=== PATIENT | male | born 1970 | race Caucasian/White ===

== ENCOUNTER → 2019-10-15 00:01 | Outpatient (RCR) | payer OTHER, SELFPAY | LOC: ONCMED 09-17 06:13 | PROVIDERS: Family Provider Family Medicine; Visit Provider Internal Medicine Hematology & Oncology | DX: Z51.11 Encounter for antineoplastic chemotherapy (principal); C20 Malignant neoplasm of rectum; C77.2 Secondary and unspecified malignant neoplasm of intra-abdominal lymph nodes; D70.1 Agranulocytosis secondary to cancer chemotherapy; T45.1X5A Adverse effect of antineoplastic and immunosuppressive drugs, initial encounter; D50.9 Iron deficiency anemia, unspecified; K57.30 Diverticulosis of large intestine without perforation or abscess without bleeding; Z79.899 Other long term (current) drug therapy ==

== ENCOUNTER 2019-11-15 05:45 | Outpatient (RCR) | payer OTHER, SELFPAY ==
[2019-10-29 09:26] LABS: Basophils # 0.1 10^3/uL (0.0-0.1); Basophils % 1.7 %; Eosinophils # 0.7 10^3/uL (0.0-0.8); Eosinophils % 11.9 %; Hematocrit 40.3 % (42.0-52.0); Hemoglobin 13.2 g/dL (11.7-16.6); Lymphocytes % 17.5 %; Mean Corpuscular HGB Conc 32.8 g/dL (30.0-36.0); Mean Corpuscular Hemoglobin 32.3 pg (28.0-34.0); Mean Corpuscular Volume 98.5 fL (80-94); Mean Platelet Volume 10.9 fL (7.4-10.4); Monocytes # 0.9 10^3/uL (0.2-0.9); Neutrophils # 3.1 10^3/uL (1.8-7.7); Neutrophils % 52.5 %; Nucleated Red Blood Cells % 0 %; Platelet Count 133 10^3/cmm (130-400); Red Blood Count 4.09 10^6/uL (4.1-5.3); Red Cell Distribution Width 17.9 % (12.1-15.1); White Blood Count 5.9 10^3/uL (4.0-10.0)
[2019-10-29 09:38] LABS: Alanine Aminotransferase 54 U/L (0-41); Albumin Level 4.4 g/dL (3.5-5.2); Alkaline Phosphatase 248 IU/L (40-130); Anion Gap 16.5 (5-19); Aspartate Amino Transferase 60 U/L (0-40); Blood Urea Nitrogen 4 mg/dL (6-20); Carbon Dioxide 25 mmol/L (22-29); Chloride 100 mmol/L (98-107); Globulin 2.6 g/dL (1.3-4.6); Glomerular Filtration Rate 119.4 mL/min (90-130); Glucose 115 mg/dL (74-109); Potassium 3.5 mmol/L (3.5-5.1); Sodium 138 mmol/L (136-145); Total Bilirubin 0.6 mg/dL (0.15-1.2)
[2019-10-30] MEDS: dextrose 5 % 500 ML 75 ML (10:45)
--- NOTE | 2019-10-31 08:28 | ONC FU_ITS ---
Dr. Frias follow up note Patient: Guy Salinas Unit #: [id number]: 1970 Dicatated By: Jamie Frias M.D.Date of Visit:Oct 30, 2019 Onc Med Follow-up/Prog Note History of Present Illness: Mr. Guy Salinas, Is a 49 -year-old gentleman with off and on bleeding per rectum for the last couple of years. Recently went to [facility] with progressive weakness found to have hemoglobin around 6 g patient was given blood transfusion with that he felt better, underwent CT scan of abdomen and pelvis on 12/13/2018 which showed circumferential rectal wall thickening with mild perirectal edema and small perirectal lymph nodes Descending and sigmoid diverticulosis without acute diverticulitis. And also showed 2 mm nodules at the lung bases bilaterally, no liver involvement no pelvic lymphadenopathy. Patient underwent colonoscopy on 12/14/2018 which showed at 8 cm, there is circumferential mass, biopsy was obtained final pathology report showed infiltrating adenocarcinoma, low-grade, moderately differentiated. CEA was 2.1 Patient is on oral iron supplement, tolerating well, overall feeling well, still has rectal bleeding but off-and-on. As per patient Dr. Miller refered him to colorectal surgeon in [place], [place] for evaluation Mr Salinas was evaluated by Dr. Rodríguez in [place] who recommended neoadjuvant chemotherapy. neoadjuvant combined chemoradiation therapy with oral Xeloda has been started 01/28 After completion combined chemoradiation patient underwent sigmoid colon/rectum resection on 04/30/2019 and final pathology report shows partial response, tumor size 2 x 2.05 cm extends through muscularis propria into perirectal adipose tissue, with a clear margin no lymphovascular invasion seen 4 out of 11 lymph nodes positive Started on adjuvant chemotherapy with FOLFOX every 2 weeks ???12 on 07/03/2019 Came for follow-up, denies any specific complaints, no fever or chills, no nausea or vomiting, no mouth sores, no diarrhea constipation, no peripheral numbness. Tolerating adjuvant chemotherapy with FOLFOX well. Medications: Allopurinol 1 Tablet (of 300 mg) Oral daily, Lisinopril 1 (40 mg) Tablet Oral daily, LORazepam 1 Tablet (of 0.5 mg) Oral t.i.d. PRN, Omeprazole 1 Tablet (of 20 mg) Tablet, enteric coated Oral daily, Prochlorperazine Maleate 1 Tablet (of 10 mg) Oral q 4 hours PRN, Ritalin 1 Tablet (of 10 mg) Oral b.i.d., Tamsulosin HCl 1 Capsule (of 0.4 mg) Oral at bedtime PRN Allergies: Cefprozil and Naproxen. Review of Systems: Constitutional - Appetite is good and weight is stable. No fever, chills, hot flashes, or night sweats. Energy level is fair, ENMT - No sinus congestion/drainage. No mouth sores. No sore throat or difficulty swallowing, Hematologic/Lymphatic - No abnormal bruising or bleeding, Respiratory - No shortness of breath. No cough. No pleuritic pain or hemoptysis, Cardiovascular - No angina pain. No palpitations, Gastrointestinal - No nausea or vomiting. No heartburn or acid reflux. No diarrhea or constipation. No blood in the stool or black stools, Genitourinary (M) - Occaional dysuria, no hematuria. No urinary frequency. No urgency or incontinence, Musculoskeletal - No joint or bone pain, Neurologic - No headache or dizziness. No numbness/paresthesias or other focal neurologic symptoms, Psychiatric - No anxiety or depression. No insomnia. Vital Signs: Performed on Oct 30, 2019 15:15 Height - 67.00 in Temperature - 98 F (LOW) Pulse - 92 /min Respiration - 18 /min BP - 118/77 mm(hg) O2 Sat - 98 % Pain - 0 Fatigue - 0 Performed on Oct 30, 2019 09:28 Height - 67.00 in Weight - 218.2 lbs (LOW) BSA - 2.10 sq.m BMI - 34.18 (HIGH) Temperature - 97.8 F (LOW) Pulse - 88 /min Respiration - 20 /min BP - 126/82 mm(hg) O2 Sat - 98 % Pain - 0 Performance Status: 0 - Fully active, able to carry on all predisease activities without restrictions. (ECOG) Physical Examination: ENMT - No oral exudates, ulcers, masses, thrush or mucositis. Oropharynx clear. Tongue normal, Respiratory - Lungs are clear to auscultation without rhonchi or wheezing, Cardiovascular - Regular rate and rhythm of heart, Abdomen - Non-tender, non-distended, ileostomy bag functioning fine Good bowel sounds. No guarding or rebound tenderness. No pulsatile masses, Extremities - no edema. Lab/Imaging: Test performed on Oct 29, 2019 08:55 Glucose 115 mg/dL BUN 4 mg/dL Creatinine 0.7 mg/dL Cr Clearance (Est) 171.88 mL/min Sodium 138 mmol/L Potassium 3.5 mmol/L Chloride 100 mmol/L CO2 25 mmol/L Calcium 10.0 mg/dL Protein, Total 7.0 g/dL Albumin 4.4 g/dL Globulin 2.6 g/dL Bilirubin, Total 0.6 mg/dL Alkaline Phosphatase 248 IU/L AST (SGOT) 60 IU/L ALT (SGPT) 54 IU/L WBC 5.9 10^9/L RBC 4.09 10^12/L HGB 13.2 g/dL HCT 40.3 % MCV 98.5 fl MCH 32.3 pg MCHC 32.8 g/dL RDW 17.9 % Platelet Count 133 10^9/L MPV 10.9 fL Neutrophils (Gran) 3.1 10^9/L Lymphocytes 1.0 10^9/L Monocytes 0.9 10^9/L Eosinophils 0.7 10^9/L Basophils 0.1 10^9/L Manual Segs 52.5 % Manual Lymphocytes 17.5 % Manual Monocytes 15.0 % Manual Eosinophils 11.9 % Manual Basophils 1.7 % NRBCs 0.0 /100 WBC Test performed on Oct 14, 2019 14:25 Anion Gap 13.4 eGFR 142.6 mL/min Neutrophil % 60.2 % Lymphocyte % 15.3 % Monocyte % 16.1 % Eosinophil % 6.2 % Basophils % 1.6 % Test performed on Sep 17, 2019 13:13 Magnesium 1.9 mg/dL Impression: Infiltrating adenocarcinoma, low-grade, moderate differentiated per biopsy/colonoscopy done on 12/14/[address] scan of chest abdomen pelvis done on 12/13/2018 showed circumferential rectal wall thickening with mild perirectal edema and small perirectal lymph nodes, correlate for acute proctitis Descending and sigmoid diverticulosis without acute diverticulitis No intrahepatic lesion, no pelvic lymphadenopathy 2 mm nodules at the lung bases bilaterally. Iron deficiency anemia status post packed RBCs, now on oral iron now complaining of intolerance , Oral iron discontinued status post Injectafer 750 mg on February 01 and 2018 Esophageal stricture status post dilatation many years ago. s/p dalataion with that his dysphagia resolved and able to take Xeloda by mouth now on Xeloda twice a day 5 days a week concurrent with radiation therapy, started on 01/28/19 And after completion combined chemoradiation patient underwent sigmoid colon/rectum resection on 04/30/2019 which showed partial response tumor size was 2 x 2.5 cm extends through muscularis propria into perirectal adipose tissue with clear margins, no lymphovascular invasion seen, 4 out of 11 lymph nodes were positive for metastatic disease, patient was started on adjuvant chemotherapy with FOLFOX ???12 on 07/03/2019 Plan: Discussed with patient regarding his labs white blood count 5.9 hemoglobin 13.2 crit 40.3 platelets 133,000 CMP within normal limits Clinically, patient is doing well, tolerating adjuvant therapy with FOLFOX well but with expected side effects. We'll proceed with next cycle #8/12 with FOLFOX today and then return to clinic in 2 weeks with CBC CMP. Signed By: Jamie Frias M.D. <<Signature on File>>
[2019-11-12 14:09] LABS: Basophils # 0.1 10^3/uL (0.0-0.1); Basophils % 1.2 %; Eosinophils # 0.6 10^3/uL (0.0-0.8); Eosinophils % 9.3 %; Hematocrit 39.3 % (42.0-52.0); Hemoglobin 12.8 g/dL (11.7-16.6); Lymphocytes # 0.8 10^3/uL (0.8-4.8); Lymphocytes % 13.4 %; Mean Corpuscular HGB Conc 32.6 g/dL (30.0-36.0); Mean Corpuscular Hemoglobin 33.7 pg (28.0-34.0); Mean Corpuscular Volume 103.4 fL (80-94); Mean Platelet Volume 10.1 fL (7.4-10.4); Monocytes # 1.1 10^3/uL (0.2-0.9); Monocytes % 18.4 %; Neutrophils # 3.4 10^3/uL (1.8-7.7); Neutrophils % 56.5 %; Nucleated Red Blood Cells % 0 %; Platelet Count 128 10^3/cmm (130-400); Red Cell Distribution Width 18.2 % (12.1-15.1)
[2019-11-12 14:23] LABS: Alanine Aminotransferase 45 U/L (0-41); Albumin Level 3.4 g/dL (3.5-5.2); Alkaline Phosphatase 275 IU/L (40-130); Aspartate Amino Transferase 43 U/L (0-40); Blood Urea Nitrogen 5 mg/dL (6-20); Calcium 9.6 mg/dL (8.5-10.5); Carbon Dioxide 22 mmol/L (22-29); Chloride 103 mmol/L (98-107); Glomerular Filtration Rate 142.6 mL/min (90-130); Glucose 97 mg/dL (74-109); Sodium 139 mmol/L (136-145); Total Bilirubin 0.7 mg/dL (0.15-1.2); Total Protein 7.4 g/dL (6.6-8.7)
[2019-11-12 15:22] LABS: Slide Review Slide Review Perform
[2019-11-13] MEDS: dextrose 5% 250 ML 75 ML IV (09:55)
--- NOTE | 2019-11-13 10:03 | ONC FU_ITS ---
Dr. Frias follow up note Patient: Guy Salinas Unit #: [id number]: 1970 Dicatated By: Jamie Frias M.D.Date of Visit:Nov 13, 2019 Onc Med Follow-up/Prog Note History of Present Illness: Mr. Guy Salinas, Is a 49 -year-old gentleman with off and on bleeding per rectum for the last couple of years. Recently went to [facility] with progressive weakness found to have hemoglobin around 6 g patient was given blood transfusion with that he felt better, underwent CT scan of abdomen and pelvis on 12/13/2018 which showed circumferential rectal wall thickening with mild perirectal edema and small perirectal lymph nodes Descending and sigmoid diverticulosis without acute diverticulitis. And also showed 2 mm nodules at the lung bases bilaterally, no liver involvement no pelvic lymphadenopathy. Patient underwent colonoscopy on 12/14/2018 which showed at 8 cm, there is circumferential mass, biopsy was obtained final pathology report showed infiltrating adenocarcinoma, low-grade, moderately differentiated. CEA was 2.1 Patient is on oral iron supplement, tolerating well, overall feeling well, still has rectal bleeding but off-and-on. As per patient Dr. Miller refered him to colorectal surgeon in [place], [place] for evaluation Mr Salinas was evaluated by Dr. Rodríguez in [place] who recommended neoadjuvant chemotherapy. neoadjuvant combined chemoradiation therapy with oral Xeloda has been started 01/28 After completion combined chemoradiation patient underwent sigmoid colon/rectum resection on 04/30/2019 and final pathology report shows partial response, tumor size 2 x 2.05 cm extends through muscularis propria into perirectal adipose tissue, with a clear margin no lymphovascular invasion seen 4 out of 11 lymph nodes positive Started on adjuvant chemotherapy with FOLFOX every 2 weeks ???12 on 07/03/2019 Came for follow-up, denies any specific complaints, no nausea vomiting no fever no chills no diarrhea constipation, no mouth sores, no jaundice, no peripheral neuropathy . Tolerating adjuvant chemotherapy with FOLFOX, well Medications: Allopurinol 1 Tablet (of 300 mg) Oral daily, Lisinopril 1 (40 mg) Tablet Oral daily, LORazepam 1 Tablet (of 0.5 mg) Oral t.i.d. PRN, Omeprazole 1 Tablet (of 20 mg) Tablet, enteric coated Oral daily, Prochlorperazine Maleate 1 Tablet (of 10 mg) Oral q 4 hours PRN, Ritalin 1 Tablet (of 10 mg) Oral b.i.d., Tamsulosin HCl 1 Capsule (of 0.4 mg) Oral at bedtime PRN Allergies: Cefprozil and Naproxen. Review of Systems: Constitutional - Appetite is good and weight is stable. No fever, chills, hot flashes, or night sweats. Energy level is fair, ENMT - No sinus congestion/drainage. No mouth sores. No sore throat or difficulty swallowing, Hematologic/Lymphatic - No abnormal bruising or bleeding, Respiratory - No shortness of breath. No cough. No pleuritic pain or hemoptysis, Cardiovascular - No angina pain. No palpitations, Gastrointestinal - No nausea or vomiting. No heartburn or acid reflux. No diarrhea or constipation. No blood in the stool or black stools, Genitourinary (M) - Occaional dysuria, no hematuria. No urinary frequency. No urgency or incontinence, Musculoskeletal - No joint or bone pain, Neurologic - No headache or dizziness. No numbness/paresthesias or other focal neurologic symptoms, Psychiatric - No anxiety or depression. No insomnia. Vital Signs: Performed on Nov 13, 2019 08:40 Height - 67.00 in Weight - 215.8 lbs (LOW) BSA - 2.09 sq.m BMI - 33.80 (HIGH) Temperature - 97.9 F (LOW) Pulse - 88 /min Respiration - 24 /min BP - 120/76 mm(hg) O2 Sat - 96 % Pain - 0 Performance Status: 0 - Fully active, able to carry on all predisease activities without restrictions. (ECOG) Physical Examination: ENMT - No oral exudates, ulcers, masses, thrush or mucositis. Oropharynx clear. Tongue normal, Respiratory - Lungs are clear to auscultation without rhonchi or wheezing, Cardiovascular - Regular rate and rhythm of heart, Abdomen - Non-tender, non-distended, Good bowel sounds. No guarding or rebound tenderness. No pulsatile masses, Extremities - no edema or rash. Lab/Imaging: Test performed on Oct 29, 2019 08:55 Glucose 115 mg/dL BUN 4 mg/dL Creatinine 0.7 mg/dL Cr Clearance (Est) 171.88 mL/min Sodium 138 mmol/L Potassium 3.5 mmol/L Chloride 100 mmol/L CO2 25 mmol/L Calcium 10.0 mg/dL Protein, Total 7.0 g/dL Albumin 4.4 g/dL Globulin 2.6 g/dL Bilirubin, Total 0.6 mg/dL Alkaline Phosphatase 248 IU/L AST (SGOT) 60 IU/L ALT (SGPT) 54 IU/L WBC 5.9 10^9/L RBC 4.09 10^12/L HGB 13.2 g/dL HCT 40.3 % MCV 98.5 fl MCH 32.3 pg MCHC 32.8 g/dL RDW 17.9 % Platelet Count 133 10^9/L MPV 10.9 fL Neutrophils (Gran) 3.1 10^9/L Lymphocytes 1.0 10^9/L Monocytes 0.9 10^9/L Eosinophils 0.7 10^9/L Basophils 0.1 10^9/L Manual Segs 52.5 % Manual Lymphocytes 17.5 % Manual Monocytes 15.0 % Manual Eosinophils 11.9 % Manual Basophils 1.7 % NRBCs 0.0 /100 WBC Test performed on Oct 14, 2019 14:25 Anion Gap 13.4 eGFR 142.6 mL/min Neutrophil % 60.2 % Lymphocyte % 15.3 % Monocyte % 16.1 % Eosinophil % 6.2 % Basophils % 1.6 % Test performed on Sep 17, 2019 13:13 Magnesium 1.9 mg/dL Impression: Infiltrating adenocarcinoma, low-grade, moderate differentiated per biopsy/colonoscopy done on 12/14/2018 [address]A was [address] scan of chest abdomen pelvis done on 12/13/2018 showed circumferential rectal wall thickening with mild perirectal edema and small perirectal lymph nodes, correlate for acute proctitis Descending and sigmoid diverticulosis without acute diverticulitis No intrahepatic lesion, no pelvic lymphadenopathy 2 mm nodules at the lung bases bilaterally. Iron deficiency anemia status post packed RBCs, now on oral iron now complaining of intolerance , Oral iron discontinued status post Injectafer 750 mg on February 01 and 2018 Esophageal stricture status post dilatation many years ago. s/p dalataion with that his dysphagia resolved and able to take Xeloda by mouth now on Xeloda twice a day 5 days a week concurrent with radiation therapy, started on 01/28/19 And after completion combined chemoradiation patient underwent sigmoid colon/rectum resection on 04/30/2019 which showed partial response tumor size was 2 x 2.5 cm extends through muscularis propria into perirectal adipose tissue with clear margins, no lymphovascular invasion seen, 4 out of 11 lymph nodes were positive for metastatic disease, patient was started on adjuvant chemotherapy with FOLFOX ???12 on 07/03/2019 Plan: Discussed with patient regarding his labs white blood count 6 hemoglobin 12.8 crit 39.3 platelets 126,000 CMP within normal limit except potassium 3 and ALT 45 compared to 54 on 10/29/2019 and AST 43 compared to 60 on 10/29/2019. Clinically, patient is doing well tolerating adjuvant chemotherapy with FOLFOX well. We'll proceed with next cycle #9/12 with FOLFOX today and then he will return to clinic in 2 weeks with CBC CMP As far as mild hypokalemia is concern, we will give him potassium supplement KCl 20 mEq by mouth twice a day for 2 days then as needed and also check his magnesium level if is low , supplement.Mildly elevated transaminases, now improving, continue to monitor Signed By: Jamie Frias M.D. <<Signature on File>>
[2019-11-13 13:09] LABS: Magnesium 1.9 mg/dL (1.7-2.3)
== END 2019-11-15 23:59 | disposition home or self-care (01) ==
LOC: ONCMED 05:45
PROVIDERS: Nurse Practitioner; Family Provider Family Medicine; PCP Family Medicine; Visit Provider Internal Medicine Hematology & Oncology
DX: Z51.11 Encounter for antineoplastic chemotherapy (principal); C20 Malignant neoplasm of rectum; C77.2 Secondary and unspecified malignant neoplasm of intra-abdominal lymph nodes; D70.1 Agranulocytosis secondary to cancer chemotherapy; T45.1X5A Adverse effect of antineoplastic and immunosuppressive drugs, initial encounter; E87.6 Hypokalemia; Z45.2 Encounter for adjustment and management of vascular access device; K57.30 Diverticulosis of large intestine without perforation or abscess without bleeding; Z92.3 Personal history of irradiation; Z90.49 Acquired absence of other specified parts of digestive tract; Z79.899 Other long term (current) drug therapy
CPT/HCPCS: 36591; 80053; 83735; 85025; 96367; 96368; 96372; 96411; 96413; 96415; 96416; 96523; 99214; J0640; J1100; J2469; J2505; J9190; J9263

== ENCOUNTER 2019-12-10 05:34 | Outpatient (RCR) | payer OTHER, SELFPAY ==
[2019-11-26 15:13] LABS: Basophils % 1.4 %; Eosinophils # 0.2 10^3/uL (0.0-0.8); Eosinophils % 7.1 %; Hematocrit 36.8 % (42.0-52.0); Lymphocytes # 0.5 10^3/uL (0.8-4.8); Lymphocytes % 18.9 %; Mean Corpuscular HGB Conc 32.6 g/dL (30.0-36.0); Mean Corpuscular Volume 101.1 fL (80-94); Mean Platelet Volume 10.8 fL (7.4-10.4); Monocytes # 0.8 10^3/uL (0.2-0.9); Monocytes % 26.7 %; Neutrophils # 1.3 10^3/uL (1.8-7.7); Neutrophils % 45.9 %; Nucleated Red Blood Cells % 0 %; Platelet Count 129 10^3/cmm (130-400); Red Blood Count 3.64 10^6/uL (4.1-5.3); Red Cell Distribution Width 17.6 % (12.1-15.1); White Blood Count 2.8 10^3/uL (4.0-10.0)
[2019-11-26 15:27] LABS: Alanine Aminotransferase 35 U/L (0-41); Albumin Level 3.4 g/dL (3.5-5.2); Alkaline Phosphatase 244 IU/L (40-130); Anion Gap 18.5 (5-19); Aspartate Amino Transferase 41 U/L (0-40); Blood Urea Nitrogen 6 mg/dL (6-20); Calcium 9.6 mg/dL (8.5-10.5); Carbon Dioxide 21 mmol/L (22-29); Chloride 107 mmol/L (98-107); Glomerular Filtration Rate 119.4 mL/min (90-130); Glucose 113 mg/dL (65-115); Potassium 3.5 mmol/L (3.5-5.1); Sodium 143 mmol/L (136-145); Total Bilirubin 0.9 mg/dL (0.15-1.2); Total Protein 7.4 g/dL (6.6-8.7)
--- NOTE | 2019-11-27 17:06 | ONC FU_ITS ---
Dr. Frias follow up note Patient: Guy Salinas Unit #: [id number]: 1970 Dicatated By: Jamie Frias M.D.Date of Visit:Nov 27, 2019 Onc Med Follow-up/Prog Note History of Present Illness: Mr. Guy Salinas, Is a 49 -year-old gentleman with off and on bleeding per rectum for the last couple of years. Recently went to [facility] [place] [facility] with progressive weakness found to have hemoglobin around 6 g patient was given blood transfusion with that he felt better, underwent CT scan of abdomen and pelvis on 12/13/2018 which showed circumferential rectal wall thickening with mild perirectal edema and small perirectal lymph nodes Descending and sigmoid diverticulosis without acute diverticulitis. And also showed 2 mm nodules at the lung bases bilaterally, no liver involvement no pelvic lymphadenopathy. Patient underwent colonoscopy on 12/14/2018 which showed at 8 cm, there is circumferential mass, biopsy was obtained final pathology report showed infiltrating adenocarcinoma, low-grade, moderately differentiated. CEA was 2.1 Patient is on oral iron supplement, tolerating well, overall feeling well, still has rectal bleeding but off-and-on. As per patient Dr. Miller refered him to colorectal surgeon in [place], [place] for evaluation Mr Salinas was evaluated by Dr. Rodríguez in [place] who recommended neoadjuvant chemotherapy. neoadjuvant combined chemoradiation therapy with oral Xeloda has been started 01/28 After completion combined chemoradiation patient underwent sigmoid colon/rectum resection on 04/30/2019 and final pathology report shows partial response, tumor size 2 x 2.05 cm extends through muscularis propria into perirectal adipose tissue, with a clear margin no lymphovascular invasion seen 4 out of 11 lymph nodes positive Started on adjuvant chemotherapy with FOLFOX every 2 weeks ???12 on 07/03/2019 Came for follow-up, denies any specific complaints, no fever or chills, no nausea or vomiting, no mouth sores, no diarrhea constipation, colostomy bag is functioning fine, patient was on potassium supplement but because of financial reason could not get his prescription filled till yesterday. Otherwise tolerating adjuvant chemotherapy with FOLFOX well Medications: Allopurinol 1 Tablet (of 300 mg) Oral daily, Lisinopril 1 (40 mg) Tablet Oral daily, LORazepam 1 Tablet (of 0.5 mg) Oral t.i.d. PRN, Omeprazole 1 Tablet (of 20 mg) Tablet, enteric coated Oral daily, Prochlorperazine Maleate 1 Tablet (of 10 mg) Oral q 4 hours PRN, Ritalin 1 Tablet (of 10 mg) Oral b.i.d., Tamsulosin HCl 1 Capsule (of 0.4 mg) Oral at bedtime PRN Allergies: Cefprozil and Naproxen. Review of Systems: Review of Systems is not available for this patient. Vital Signs: Performed on Nov 27, 2019 08:33 Height - 67.00 in Weight - 216.8 lbs (HIGH) BSA - 2.09 sq.m BMI - 33.96 (HIGH) Temperature - 98.8 F Pulse - 88 /min Respiration - 18 /min BP - 128/75 mm(hg) O2 Sat - 97 % Pain - 0 Performance Status: 0 - Fully active, able to carry on all predisease activities without restrictions. (ECOG) Physical Examination: ENMT - No oral exudates, ulcers, masses, thrush or mucositis. Oropharynx clear. Tongue normal, Respiratory - Lungs are clear to auscultation without rhonchi or wheezing, Cardiovascular - Regular rate and rhythm of heart, Abdomen - Non-tender, non-distended, Good bowel sounds. No guarding or rebound tenderness. colostomy bag functioning fine, Extremities - no edema or rash. Lab/Imaging: Test performed on Nov 12, 2019 13:15 Magnesium 1.9 mg/dL Sodium 139 mmol/L Potassium 3.0 mmol/L Chloride 103 mmol/L CO2 22 mmol/L Anion Gap 17.0 BUN 5 mg/dL Creatinine 0.6 mg/dL Cr Clearance (Est) 200.5300 mL/min eGFR 142.6 mL/min Glucose 97 mg/dL Calcium 9.6 mg/dL Protein, Total 7.4 g/dL Albumin 3.4 g/dL Globulin 4.0 g/dL Bilirubin, Total 0.7 mg/dL ALT (SGPT) 45 U/L AST (SGOT) 43 U/L Alkaline Phosphatase 275 IU/L WBC 6.0 10 3/uL RBC 3.80 10 6/uL HGB 12.8 g/dL HCT 39.3 % MCV 103.4 fL MCH 33.7 pg MCHC 32.6 g/dL RDW 18.2 % Platelet Count 128 10 3/cmm MPV 10.1 fL Neutrophils 3.4 10 3/uL Lymphocytes 0.8 10 3/uL Monocytes 1.1 10 3/uL Eosinophils 0.6 10 3/uL Basophils 0.1 10 3/uL Neutrophil % 56.5 % Lymphocyte % 13.4 % Monocyte % 18.4 % Eosinophil % 9.3 % Basophils % 1.2 % CBC Slide Review Slide Review Perform Test performed on Oct 29, 2019 08:55 Manual Segs 52.5 % Manual Lymphocytes 17.5 % Manual Monocytes 15.0 % Manual Eosinophils 11.9 % Manual Basophils 1.7 % NRBCs 0.0 /100 WBC Impression: Infiltrating adenocarcinoma, low-grade, moderate differentiated per biopsy/colonoscopy done on 12/14/2018 [address] scan of chest abdomen pelvis done on 12/13/2018 showed circumferential rectal wall thickening with mild perirectal edema and small perirectal lymph nodes, correlate for acute proctitis Descending and sigmoid diverticulosis without acute diverticulitis No intrahepatic lesion, no pelvic lymphadenopathy 2 mm nodules at the lung bases bilaterally. Iron deficiency anemia status post packed RBCs, now on oral iron now complaining of intolerance , Oral iron discontinued status post Injectafer 750 mg on February 01 and 2018 Esophageal stricture status post dilatation many years ago. s/p dalataion with that his dysphagia resolved and able to take Xeloda by mouth now on Xeloda twice a day 5 days a week concurrent with radiation therapy, started on 01/28/19 And after completion combined chemoradiation patient underwent sigmoid colon/rectum resection on 04/30/2019 which showed partial response tumor size was 2 x 2.5 cm extends through muscularis propria into perirectal adipose tissue with clear margins, no lymphovascular invasion seen, 4 out of 11 lymph nodes were positive for metastatic disease, patient was started on adjuvant chemotherapy with FOLFOX ???12 on 07/03/2019 Plan: Discussed with patient regarding his labs white blood count 2.8 hemoglobin crit 36.8 platelets 129,000 ANC 1300 CMP within normal limit except potassium 3.5 Clinically, patient is doing well, tolerating adjuvant chemotherapy with modified dose FOLFOX well but with expected side effects e.g. progressive leukopenia/neutropenia now causing delay in chemotherapy. Patient was supposed to get Neulasta with last treatment but somehow did not get it. We will hold his chemotherapy for week and repeat CBC and CMP in 1 week and if leukopenia resolves then will consider next cycle of chemotherapy with Neulasta support to prevent chemotherapy-induced leukopenia/neutropenia and to maintain chemotherapy schedule. Mild hypokalemia, patient is on potassium supplement, will continue to monitor. Signed By: Jamie Frias M.D. <<Signature on File>>
[2019-12-02 15:22] LABS: Basophils % 1.5 %; Eosinophils # 0.2 10^3/uL (0.0-0.8); Eosinophils % 7.6 %; Hematocrit 39.6 % (42.0-52.0); Hemoglobin 12.8 g/dL (11.7-16.6); Lymphocytes # 0.6 10^3/uL (0.8-4.8); Lymphocytes % 22.8 %; Mean Corpuscular HGB Conc 32.3 g/dL (30.0-36.0); Mean Corpuscular Hemoglobin 33.6 pg (28.0-34.0); Mean Corpuscular Volume 103.9 fL (80-94); Mean Platelet Volume 10.3 fL (7.4-10.4); Monocytes # 0.9 10^3/uL (0.2-0.9); Monocytes % 35.7 %; Neutrophils # 0.9 10^3/uL (1.8-7.7); Neutrophils % 32.4 %; Nucleated Red Blood Cells % 0 %; Platelet Count 216 10^3/cmm (130-400); Red Blood Count 3.81 10^6/uL (4.1-5.3); Red Cell Distribution Width 16.9 % (12.1-15.1); White Blood Count 2.6 10^3/uL (4.0-10.0)
[2019-12-02 15:35] LABS: Alanine Aminotransferase 31 U/L (0-41); Albumin Level 3.3 g/dL (3.5-5.2); Alkaline Phosphatase 261 IU/L (40-130); Anion Gap 14.7 (5-19); Aspartate Amino Transferase 38 U/L (0-40); Blood Urea Nitrogen 6 mg/dL (6-20); Calcium 9.8 mg/dL (8.5-10.5); Carbon Dioxide 22 mmol/L (22-29); Chloride 107 mmol/L (98-107); Globulin 4.1 g/dL (1.3-4.6); Glomerular Filtration Rate 119.4 mL/min (90-130); Glucose 121 mg/dL (65-115); Potassium 3.7 mmol/L (3.5-5.1); Sodium 140 mmol/L (136-145); Total Bilirubin 0.6 mg/dL (0.15-1.2); Total Protein 7.4 g/dL (6.6-8.7)
[2019-12-09 11:53] LABS: Basophils # 0.1 10^3/uL (0.0-0.1); Basophils % 1.5 %; Eosinophils # 0.3 10^3/uL (0.0-0.8); Eosinophils % 6.4 %; Hematocrit 39.3 % (42.0-52.0); Hemoglobin 12.7 g/dL (11.7-16.6); Lymphocytes # 0.6 10^3/uL (0.8-4.8); Lymphocytes % 14.1 %; Mean Corpuscular HGB Conc 32.3 g/dL (30.0-36.0); Mean Corpuscular Hemoglobin 33.7 pg (28.0-34.0); Mean Corpuscular Volume 104.2 fL (80-94); Mean Platelet Volume 10.1 fL (7.4-10.4); Monocytes # 0.7 10^3/uL (0.2-0.9); Monocytes % 15.9 %; Neutrophils # 2.8 10^3/uL (1.8-7.7); Neutrophils % 61.7 %; Nucleated Red Blood Cells % 0 %; Platelet Count 152 10^3/cmm (130-400); Red Blood Count 3.77 10^6/uL (4.1-5.3); Red Cell Distribution Width 16.6 % (12.1-15.1); White Blood Count 4.5 10^3/uL (4.0-10.0)
[2019-12-09 12:10] LABS: Alanine Aminotransferase 25 U/L (0-41); Albumin Level 3.2 g/dL (3.5-5.2); Alkaline Phosphatase 264 IU/L (40-130); Anion Gap 14.3 (5-19); Aspartate Amino Transferase 32 U/L (0-40); Blood Urea Nitrogen 7 mg/dL (6-20); Calcium 9.8 mg/dL (8.5-10.5); Carbon Dioxide 22 mmol/L (22-29); Chloride 109 mmol/L (98-107); Globulin 4.1 g/dL (1.3-4.6); Glomerular Filtration Rate 119.4 mL/min (90-130); Glucose 153 mg/dL (65-115); Potassium 3.3 mmol/L (3.5-5.1); Sodium 142 mmol/L (136-145); Total Bilirubin 0.5 mg/dL (0.15-1.2); Total Protein 7.3 g/dL (6.6-8.7)
[2019-12-10 11:10] LABS: Magnesium 2.1 mg/dL (1.7-2.3)
--- NOTE | 2019-12-11 20:27 | ONC FU_ITS ---
[facility] Patient Note Patient: Guy Salinas Unit #: [id number]: 1970 Dictated By: Kisha ValladaresDate of Visit: Dec 10, 2019 Onc MED Follow-Up/Prog Note Chief Complaint: Rectal cancer History of Present Illness: Mr. Salinas is a 49 -year-old gentleman with intermittent rectal bleeding for the last couple of years. In November 2019, he [place] [facility] [place] [facility] with progressive weakness found to have hemoglobin around 6 g. He was given blood transfusion and with that he felt better. He then underwent CT scan of abdomen and pelvis on 12/13/2018 which showed circumferential rectal wall thickening with mild perirectal edema and small perirectal lymph nodes; Descending and sigmoid diverticulosis without acute diverticulitis. And also showed 2 mm nodules at the lung bases bilaterally, no liver involvement no pelvic lymphadenopathy. Mr Salinas underwent colonoscopy on 12/14/2018 which showed at 8 cm a circumferential mass. A biopsy was obtained and the final pathology report showed infiltrating adenocarcinoma, low-grade, moderately differentiated. CEA was 2.1 Mr Salinas is on oral iron supplement, tolerating well, overall feeling well, still has rectal bleeding but off-and-on. As per patient, Dr. Miller referred him to colorectal surgeon in [place], [place] for evaluation. Mr Salinas was evaluated by Dr. Rodríguez in [place] who recommended neoadjuvant chemotherapy. Neoadjuvant combined chemoradiation therapy with oral Xeloda started on 01/28 After completion combined chemoradiation, Mr Salinas underwent sigmoid colon/rectum resection on 04/30/2019 and final pathology report shows partial response, tumor size 2 x 2.05 cm extends through muscularis propria into perirectal adipose tissue, with a clear margin no lymphovascular invasion seen 4 out of 11 lymph nodes positive. Mr Salinas started on adjuvant chemotherapy with FOLFOX every 2 weeks ???12 on 07/03/2019. Mr. Salinas has now completed 9 cycles of FOLFOX. He has required growth factor support due to chemo induced neutropenia. With cycle 9 he did not receive the Neulasta for unknown reasons and his ANC nadired at 900. His last chemotherapy treatment was November 13, 2019. Mr. Salinas is here today for follow-up and consideration of chemotherapy. Due to significant neutropenia and significant [id number] expense for the fluorouracil pump, Dr. Frias has offered to change the fluorouracil portion to keep capecitabine at 1650 mg twice daily 14 days on and 7 days off. Mr. Salinas came today to start the XELOX regimen. He states his co-pay for the capecitabine was 7 or $8. He denies any new concerns today. He denies any new pain. He has had no shortness of breath orthopnea. He denies chest pain or palpitations. He denies any fever or chills. He denies mouth sores, sore throat or any skin changes. He denies any diarrhea or constipation. He states his activity is fair is still limited due to fatigue. And his appetite is fair . His weight is stable. He denies any new concerns today. He has been on the Xeloda before for neoadjuvant therapy and has no questions regarding its use. We did clarify dosing and the plan to continue for 14 days straight and then take 7 days off. With his radiation he was only on the Xeloda on the days of radiation. His ECOG is 1. Past Medical History: Anemia Gastroesophageal reflux disease Gout Hypertension Past Surgical History: Cataract excision Colonoscopy in 2019 Allergies: Cefprozil and Naproxen. Medications: Allopurinol 1 Tablet (of 300 mg) Oral daily Lisinopril 1 (40 mg) Tablet Oral daily LORazepam 1 Tablet (of 0.5 mg) Oral t.i.d. PRN Omeprazole 1 Tablet (of 20 mg) Tablet, enteric coated Oral daily Prochlorperazine Maleate 1 Tablet (of 10 mg) Oral q 4 hours PRN Ritalin 1 Tablet (of 10 mg) Oral b.i.d. Tamsulosin HCl 1 Capsule (of 0.4 mg) Oral at bedtime PRN Family History: Mr. Salinas's mother is alive. Mr. Salinas's father at age 73: renal cancer. Mr. Salinas has 1 brother who is alive: colon cancer. He has 1 maternal aunt who is : lung cancer. 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 Mr. Salinas no longer smokes but had smoked 0.5 packs/day for 32 years. He drinks daily. He consumes 6 drinks/day 7 days/week. He has indicated exposure to the following products: chewing tobacco. Chews tobacco and goes through 1 can every 2 days. Has chewed for about 20 plus years chews 2 cans of tobacco weekly, drinks 6-87 beers daily. Review Of Symptoms: Constitutional Denies fevers, chills, night sweats, excessive fatigue or weight loss. Allergic/Immunologic No reactions. Eyes Denies significant visual changes. No diplopia. No amaurosis. ENMT Denies changes in hearing, sore throat, mouth sores, difficulty or changes in swallowing ability, and/or sinus drainage. Endocrine No diabetes, thyroid disease or hormone replacement. Denies hot flashes or night sweats. Hematologic/Lymphatic Denies easy bruising or bleeding. The patient denies any tender or palpable lymph nodes. Respiratory Denies dyspnea on exertion, chest pain, cough or hemoptysis. Denies orthopnea. Cardiovascular Denies anginal chest pain, palpitations or orthopnea. Gastrointestinal Denies nausea, vomiting, diarrhea, GI bleeding, or constipation. Denies change in bowel habits and/or stool color, no heartburn or early satiety. No concerns with ostomy. Genitourinary (M) Denies hematuria, dysuria, increased frequency, urgency, hesitancy or incontinence. Musculoskeletal Denies joint pain, swelling or redness. No decreased range of motion. Integumentary Denies chronic rashes, inflammation, ulcerations or skin changes. Neurologic Denies headache, blurred vision, and no areas of focal weakness or numbness. Normal gait. No sensory problems. Psychiatric Denies depression, bina or mood swings. He is having some problems sleeping. Vital Signs: Performed on Dec 10, 2019 09:53 Height - 67.00 in Weight - 218.6 lbs (HIGH) BSA - 2.10 sq.m BMI - 34.24 (HIGH) Temperature - 98.8 F Pulse - 89 /min Respiration - 18 /min BP - 138/74 mm(hg) O2 Sat - 97 % Pain - 0,1 - No physically strenuous activity, but ambulatory and able to carry out light or sedentary work (e.g. office work, light house work). (ECOG) Physical Examination: Constitutional Alert, oriented, no acute distress. Skin pink, warm and dry. Head Normocephalic; atraumatic. Eyes Conjunctivae and sclerae are clear and without icterus. Pupils are reactive and equal. ENMT No oral exudates, ulcers, masses, thrush or mucositis. Oropharynx clear. Tongue normal. Neck Supple without masses or thyromegaly. No jugular venous distension. Respiratory Lungs are clear to auscultation without rhonchi or wheezing. Cardiovascular Regular rate and rhythm of heart without murmurs,clicks, gallops or rubs. Extremities No visible deformities, no cyanosis, clubbing or edema. Pulses 4+ and equal bilaterally. Musculoskeletal No tenderness or swelling, normal range of motion without obvious weakness. Integumentary No rashes or lesions. Neurologic No sensory or motor deficits, normal cerebellar function, normal gait. Psychiatric Alert and oriented times three. Coherent speech. Verbalizes understanding of our discussions today. Laboratory:Test performed on Dec 09, 2019 11:35 Magnesium 2.1 mg/dL Test performed on Dec 02, 2019 14:45 Sodium 140 mmol/L Potassium 3.7 mmol/L Chloride 107 mmol/L CO2 22 mmol/L Anion Gap 14.7 BUN 6 mg/dL Creatinine 0.7 mg/dL Cr Clearance (Est) 171.8800 mL/min eGFR 119.4 mL/min Glucose 121 mg/dL Calcium 9.8 mg/dL Protein, Total 7.4 g/dL Albumin 3.3 g/dL Globulin 4.1 g/dL Bilirubin, Total 0.6 mg/dL ALT (SGPT) 31 U/L AST (SGOT) 38 U/L Alkaline Phosphatase 261 IU/L WBC 2.6 10 3/uL RBC 3.81 10 6/uL HGB 12.8 g/dL HCT 39.6 % MCV 103.9 fL MCH 33.6 pg MCHC 32.3 g/dL RDW 16.9 % Platelet Count 216 10 3/cmm MPV 10.3 fL Neutrophils 0.9 10 3/uL Lymphocytes 0.6 10 3/uL Monocytes 0.9 10 3/uL Eosinophils 0.2 10 3/uL Basophils 0.0 10 3/uL Neutrophil % 32.4 % Lymphocyte % 22.8 % Monocyte % 35.7 % Eosinophil % 7.6 % Basophils % 1.5 % Test performed on Nov 12, 2019 13:15 CBC Slide Review Slide Review Perform Test performed on Oct 29, 2019 08:55 Manual Segs 52.5 % Manual Lymphocytes 17.5 % Manual Monocytes 15.0 % Manual Eosinophils 11.9 % Manual Basophils 1.7 % NRBCs 0.0 /100 WBC Impression: Infiltrating adenocarcinoma, low-grade, moderate differentiated per biopsy/colonoscopy done on 12/14/[address] scan of chest abdomen pelvis done on 12/13/2018 showed circumferential rectal wall thickening with mild perirectal edema and small perirectal lymph nodes, correlate for acute proctitis Descending and sigmoid diverticulosis without acute diverticulitis No intrahepatic lesion, no pelvic lymphadenopathy 2 mm nodules at the lung bases bilaterally. Iron deficiency anemia status post packed RBCs, now on oral iron now complaining of intolerance , Oral iron discontinued status post Injectafer 750 mg on February 01 and 2018 Esophageal stricture status post dilatation many years ago. s/p dalataion with that his dysphagia resolved and he was able to take Xeloda twice a day 5 days a week concurrent with radiation therapy, started on 01/28/19 After completion combined chemoradiation, Mr Salinas underwent sigmoid colon/rectum resection on 04/30/2019. Followup imaging showed partial response with the tumor size measuring 2 x 2.5 cm and it extends through muscularis propria into perirectal adipose tissue with clear margins, no lymphovascular invasion seen, 4 out of 11 lymph nodes were positive for metastatic disease Mr Salinas was offered adjuvant chemotherapy with FOLFOX ???12 on 07/03/2019. Mr. Salinas has now completed 9 cycles of FOLFOX. He has required growth factor support due to chemo induced neutropenia. With cycle 9 he did not receive the Neulasta for unknown reasons and his ANC nadired at 900. His last chemotherapy treatment was November 13, 2019. Mr. Salinas is here today for follow-up and consideration of chemotherapy. Due to significant neutropenia and significant [id number] expense for the fluorouracil pump, Dr. Frias has offered to change the fluorouracil portion to keep capecitabine at 1650 mg twice daily 14 days on and 7 days off. Mr. Salinas is here today to start the XELOX regimen. Plan: 1. Proceed with oxaliplatin (3 week dosing) and changing 5 FU pump to Xeloda 1650 mg BID x 14 days off 7. Change was requested due to out of pocket expense of fluorouracil verses capecitabine. 2. magnesium added to blood in lab for evaluation of potassium of 3.3. It is normal at 2.1. 3. Cipro 500 mg BID sent to [facility] for patient to have on hand in the event of s/s of infection or if his ANC drops again. 4. Continue weekly labs for monitoring of chemo induced neutropenia. No Neulasta given this cycle. 5. Labs from 12/09/2019 were reveiwed in detail and discussed with Mr Salinas. WBC 4.5, Hgb 12.7, 152,000 and ANC 2800. Potassium 3.3, alk phos 264, creatinine 0.7. 6. Plan to return for followup in 3 weeks with CBC, CMP and cycle 11 of 5FU/oxaliplatin. (will be second cycle of capecitabine/oxaliplatin). 7. 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 The cold induced neuropathy has been resolving well between treatment thus far. 8. AVOID GRAPEFRUIT PRODUCTS WITH XELODA (capecitabine). Signed By: Kisha Valladares-, AOP Jamie Frias MD <<Signature on File>>
== END 2019-12-14 23:59 | disposition home or self-care (01) ==
LOC: ONCMED 05:34
PROVIDERS: Absent Provider Internal Medicine Hematology & Oncology; Family Provider Family Medicine; PCP Family Medicine; Visit Provider Nurse Practitioner
DX: Z51.11 Encounter for antineoplastic chemotherapy (principal); C20 Malignant neoplasm of rectum; C77.5 Secondary and unspecified malignant neoplasm of intrapelvic lymph nodes; D70.1 Agranulocytosis secondary to cancer chemotherapy; T45.1X5A Adverse effect of antineoplastic and immunosuppressive drugs, initial encounter; E87.6 Hypokalemia; D50.9 Iron deficiency anemia, unspecified; K57.30 Diverticulosis of large intestine without perforation or abscess without bleeding; K21.9 Gastro-esophageal reflux disease without esophagitis; M10.9 Gout, unspecified; I10 Essential (primary) hypertension; F10.20 Alcohol dependence, uncomplicated; F17.220 Nicotine dependence, chewing tobacco, uncomplicated; R91.8 Other nonspecific abnormal finding of lung field; Z79.899 Other long term (current) drug therapy; Z98.890 Other specified postprocedural states; Z92.23 Personal history of estrogen therapy
CPT/HCPCS: 36591; 80053; 83735; 85025; 96367; 96413; 96415; 99214; J1100; J2469; J9263

== ENCOUNTER 2020-01-14 06:37 | Outpatient (RCR) | payer OTHER, SELFPAY ==
[2019-12-16 11:57] LABS: Basophils % 0.6 %; Eosinophils # 0.4 10^3/uL (0.0-0.8); Eosinophils % 6.9 %; Hematocrit 39.5 % (42.0-52.0); Hemoglobin 12.7 g/dL (11.7-16.6); Lymphocytes # 0.7 10^3/uL (0.8-4.8); Mean Corpuscular HGB Conc 32.2 g/dL (30.0-36.0); Mean Corpuscular Hemoglobin 32.6 pg (28.0-34.0); Mean Corpuscular Volume 101.3 fL (80-94); Mean Platelet Volume 11.3 fL (7.4-10.4); Monocytes # 0.7 10^3/uL (0.2-0.9); Monocytes % 11.2 %; Neutrophils # 4.4 10^3/uL (1.8-7.7); Neutrophils % 70.1 %; Nucleated Red Blood Cells % 0 %; Platelet Count 119 10^3/cmm (130-400); Red Cell Distribution Width 15.9 % (12.1-15.1); White Blood Count 6.3 10^3/uL (4.0-10.0)
[2019-12-16 12:12] LABS: Alanine Aminotransferase 42 U/L (0-41); Albumin Level 3.6 g/dL (3.5-5.2); Alkaline Phosphatase 243 IU/L (40-130); Anion Gap 14.3 (5-19); Aspartate Amino Transferase 48 U/L (0-40); Blood Urea Nitrogen 8 mg/dL (6-20); Calcium 9.6 mg/dL (8.5-10.5); Carbon Dioxide 23 mmol/L (22-29); Chloride 107 mmol/L (98-107); Globulin 3.8 g/dL (1.3-4.6); Glucose 144 mg/dL (65-115); Potassium 3.3 mmol/L (3.5-5.1); Sodium 141 mmol/L (136-145); Total Protein 7.4 g/dL (6.6-8.7)
[2019-12-23 11:54] LABS: Basophils % 0.7 %; Eosinophils # 0.5 10^3/uL (0.0-0.8); Eosinophils % 11.4 %; Hemoglobin 12.2 g/dL (11.7-16.6); Lymphocytes # 0.7 10^3/uL (0.8-4.8); Lymphocytes % 15.5 %; Mean Corpuscular Hemoglobin 34.2 pg (28.0-34.0); Mean Corpuscular Volume 103.6 fL (80-94); Mean Platelet Volume 10.2 fL (7.4-10.4); Monocytes # 0.8 10^3/uL (0.2-0.9); Monocytes % 17.7 %; Neutrophils # 2.5 10^3/uL (1.8-7.7); Neutrophils % 54.5 %; Nucleated Red Blood Cells % 0 %; Platelet Count 165 10^3/cmm (130-400); Red Blood Count 3.57 10^6/uL (4.1-5.3); Red Cell Distribution Width 16.3 % (12.1-15.1); White Blood Count 4.6 10^3/uL (4.0-10.0)
[2019-12-23 12:14] LABS: Alanine Aminotransferase 42 U/L (0-41); Albumin Level 3.2 g/dL (3.5-5.2); Alkaline Phosphatase 301 IU/L (40-130); Anion Gap 15.1 (5-19); Aspartate Amino Transferase 52 U/L (0-40); Blood Urea Nitrogen 6 mg/dL (6-20); Calcium 9.7 mg/dL (8.5-10.5); Carbon Dioxide 23 mmol/L (22-29); Chloride 104 mmol/L (98-107); Globulin 4.1 g/dL (1.3-4.6); Glomerular Filtration Rate 142.6 mL/min (90-130); Glucose 136 mg/dL (65-115); Osmolality Calculated 286 mOsm/kg (285-295); Potassium 3.1 mmol/L (3.5-5.1); Sodium 139 mmol/L (136-145); Total Bilirubin 0.9 mg/dL (0.15-1.2); Total Protein 7.3 g/dL (6.6-8.7)
[2019-12-30 11:07] LABS: Basophils # 0.1 10^3/uL (0.0-0.1); Basophils % 1.8 %; Eosinophils # 0.4 10^3/uL (0.0-0.8); Eosinophils % 10.8 %; Hematocrit 37.9 % (42.0-52.0); Hemoglobin 12.4 g/dL (11.7-16.6); Lymphocytes # 0.8 10^3/uL (0.8-4.8); Mean Corpuscular HGB Conc 32.7 g/dL (30.0-36.0); Mean Corpuscular Hemoglobin 34.3 pg (28.0-34.0); Mean Corpuscular Volume 104.7 fL (80-94); Mean Platelet Volume 9.9 fL (7.4-10.4); Monocytes # 0.7 10^3/uL (0.2-0.9); Monocytes % 18.2 %; Neutrophils # 1.9 10^3/uL (1.8-7.7); Neutrophils % 48.9 %; Nucleated Red Blood Cells % 0 %; Platelet Count 192 10^3/cmm (130-400); Red Blood Count 3.62 10^6/uL (4.1-5.3); Red Cell Distribution Width 17.5 % (12.1-15.1); White Blood Count 3.9 10^3/uL (4.0-10.0)
[2019-12-30 11:21] LABS: Alanine Aminotransferase 34 U/L (0-41); Albumin Level 3.5 g/dL (3.5-5.2); Alkaline Phosphatase 262 IU/L (40-130); Anion Gap 13.3 (5-19); Aspartate Amino Transferase 46 U/L (0-40); Blood Urea Nitrogen 8 mg/dL (6-20); Calcium 9.4 mg/dL (8.5-10.5); Carbon Dioxide 25 mmol/L (22-29); Chloride 108 mmol/L (98-107); Globulin 3.6 g/dL (1.3-4.6); Glomerular Filtration Rate 142.6 mL/min (90-130); Glucose 134 mg/dL (65-115); Osmolality Calculated 294 mOsm/kg (285-295); Potassium 3.3 mmol/L (3.5-5.1); Sodium 143 mmol/L (136-145); Total Protein 7.1 g/dL (6.6-8.7)
[2019-12-31] MEDS: dextrose 5% 250 ML 999 ML IV (08:58)
--- NOTE | 2020-01-02 14:57 | ONC FU_ITS ---
Dr. Frias follow up note Patient: Guy Salinas Unit #: [id number]: 1970 Dicatated By: Jamie Frias M.D.Date of Visit:Dec 31, 2019 Onc Med Follow-up/Prog Note History of Present Illness: Mr. Salinas is a 49 -year-old gentleman with intermittent rectal bleeding for the last couple of years. In November 2019, he presented to [facility] [place] [facility] with progressive weakness found to have hemoglobin around 6 g. He was given blood transfusion and with that he felt better. He then underwent CT scan of abdomen and pelvis on 12/13/2018 which showed circumferential rectal wall thickening with mild perirectal edema and small perirectal lymph nodes; Descending and sigmoid diverticulosis without acute diverticulitis. And also showed 2 mm nodules at the lung bases bilaterally, no liver involvement no pelvic lymphadenopathy. Mr Salinas underwent colonoscopy on 12/14/2018 which showed at 8 cm a circumferential mass. A biopsy was obtained and the final pathology report showed infiltrating adenocarcinoma, low-grade, moderately differentiated. CEA was 2.1 Mr Salinas is on oral iron supplement, tolerating well, overall feeling well, still has rectal bleeding but off-and-on. As per patient, Dr. Miller referred him to colorectal surgeon in [place], [place] for evaluation. Mr Salinas was evaluated by Dr. Rodríguez in [place] who recommended neoadjuvant chemotherapy. Neoadjuvant combined chemoradiation therapy with oral Xeloda started on 01/28 After completion combined chemoradiation, Mr Salinas underwent sigmoid colon/rectum resection on 04/30/2019 and final pathology report shows partial response, tumor size 2 x 2.05 cm extends through muscularis propria into perirectal adipose tissue, with a clear margin no lymphovascular invasion seen 4 out of 11 lymph nodes positive. Mr Salinas started on adjuvant chemotherapy with FOLFOX every 2 weeks ???12 on 07/03/2019. Mr. Salinas has now completed 9 cycles of FOLFOX. He has required growth factor support due to chemo induced neutropenia. With cycle 9 he did not receive the Neulasta for unknown reasons and his ANC nadired at 900. His last chemotherapy treatment was November 13, 2019. . Due to significant neutropenia and significant [id number] expense for the fluorouracil pump,offered to change the fluorouracil portion to keep capecitabine at 1650 mg twice daily 14 days on and 7 days off. He states his co-pay for the capecitabine was 7 or $8. and received 1/2 capeox on 12/10/2019 Came for follow-up, denies any specific complaints, no nausea vomiting no diarrhea constipation no mouth sores, no skin rash no [id number] skin rash. No jaundice. Tolerated first cycle of systemic chemotherapy with capeox well. Medications: Allopurinol 1 Tablet (of 300 mg) Oral daily, Lisinopril 1 (40 mg) Tablet Oral daily, LORazepam 1 Tablet (of 0.5 mg) Oral t.i.d. PRN, Omeprazole 1 Tablet (of 20 mg) Tablet, enteric coated Oral daily, Prochlorperazine Maleate 1 Tablet (of 10 mg) Oral q 4 hours PRN, Ritalin 1 Tablet (of 10 mg) Oral b.i.d., Tamsulosin HCl 1 Capsule (of 0.4 mg) Oral at bedtime PRN Allergies: Cefprozil and Naproxen. Review of Systems: Constitutional - Appetite is good and weight is stable. No fever, chills, hot flashes, or night sweats. Energy level is fair, ENMT - No sinus congestion/drainage. No mouth sores. No sore throat or difficulty swallowing, Hematologic/Lymphatic - No abnormal bruising or bleeding, Respiratory - No shortness of breath. No cough. No pleuritic pain or hemoptysis, Cardiovascular - No angina pain. No palpitations, Gastrointestinal - No nausea or vomiting. No heartburn or acid reflux. No diarrhea or constipation. No blood in the stool or black stools, Genitourinary (M) - Occaional dysuria, no hematuria. No urinary frequency. No urgency or incontinence, Musculoskeletal - No joint or bone pain, Neurologic - No headache or dizziness. No numbness/paresthesias or other focal neurologic symptoms, Psychiatric - No anxiety or depression. No insomnia. Vital Signs: Performed on Dec 31, 2019 08:19 Height - 67.00 in Weight - 222.4 lbs (HIGH) BSA - 2.12 sq.m BMI - 34.83 (HIGH) Temperature - 99.3 F (HIGH) Pulse - 95 /min Respiration - 18 /min BP - 144/67 mm(hg) (HIGH) O2 Sat - 99 % Pain - 0 Performance Status: 0 - Fully active, able to carry on all predisease activities without restrictions. (ECOG) Physical Examination: ENMT - No oral exudates, ulcers, masses, thrush or mucositis. Oropharynx clear. Tongue normal, Respiratory - Lungs are clear to auscultation without rhonchi or wheezing, Cardiovascular - Regular rate and rhythm of heart, Abdomen - Non-tender, non-distended, Good bowel sounds. No guarding or rebound tenderness. No pulsatile masses.colostomy site functioning fine, Extremities - no edema. Lab/Imaging: Test performed on Dec 30, 2019 10:51 Sodium 143 mmol/L Potassium 3.3 mmol/L Chloride 108 mmol/L CO2 25 mmol/L Anion Gap 13.3 BUN 8 mg/dL Creatinine 0.6 mg/dL Cr Clearance (Est) 204.8800 mL/min eGFR 142.6 mL/min Glucose 134 mg/dL Calcium 9.4 mg/dL Protein, Total 7.1 g/dL Albumin 3.5 g/dL Globulin 3.6 g/dL Bilirubin, Total 1.0 mg/dL ALT (SGPT) 34 U/L AST (SGOT) 46 U/L Alkaline Phosphatase 262 IU/L WBC 3.9 10 3/uL RBC 3.62 10 6/uL HGB 12.4 g/dL HCT 37.9 % MCV 104.7 fL MCH 34.3 pg MCHC 32.7 g/dL RDW 17.5 % Platelet Count 192 10 3/cmm MPV 9.9 fL Neutrophils 1.9 10 3/uL Lymphocytes 0.8 10 3/uL Monocytes 0.7 10 3/uL Eosinophils 0.4 10 3/uL Basophils 0.1 10 3/uL Neutrophil % 48.9 % Lymphocyte % 20.0 % Monocyte % 18.2 % Eosinophil % 10.8 % Basophils % 1.8 % Test performed on Dec 09, 2019 11:35 Magnesium 2.1 mg/dL Test performed on Nov 12, 2019 13:15 CBC Slide Review Slide Review Perform Test performed on Oct 29, 2019 08:55 Manual Segs 52.5 % Manual Lymphocytes 17.5 % Manual Monocytes 15.0 % Manual Eosinophils 11.9 % Manual Basophils 1.7 % NRBCs 0.0 /100 WBC Impression: Infiltrating adenocarcinoma, low-grade, moderate differentiated per biopsy/colonoscopy done on 12/14/[address] scan of chest abdomen pelvis done on 12/13/2018 showed circumferential rectal wall thickening with mild perirectal edema and small perirectal lymph nodes, correlate for acute proctitis Descending and sigmoid diverticulosis without acute diverticulitis No intrahepatic lesion, no pelvic lymphadenopathy 2 mm nodules at the lung bases bilaterally. Iron deficiency anemia status post packed RBCs, now on oral iron now complaining of intolerance , Oral iron discontinued status post Injectafer 750 mg on February 01 and 2018 Esophageal stricture status post dilatation many years ago. s/p dalataion with that his dysphagia resolved and he was able to take Xeloda twice a day 5 days a week concurrent with radiation therapy, started on 01/28/19 After completion combined chemoradiation, Mr Salinas underwent sigmoid colon/rectum resection on 04/30/2019. Followup imaging showed partial response with the tumor size measuring 2 x 2.5 cm and it extends through muscularis propria into perirectal adipose tissue with clear margins, no lymphovascular invasion seen, 4 out of 11 lymph nodes were positive for metastatic disease Mr Salinas was offered adjuvant chemotherapy with FOLFOX ???12 on 07/03/2019. Mr. Salinas has now completed 9 cycles of FOLFOX. He has required growth factor support due to chemo induced neutropenia. With cycle 9 he did not receive the Neulasta for unknown reasons and his ANC nadired at 900. His last chemotherapy treatment was November 13, 2019. Mr. Salinas is here today for follow-up and consideration of chemotherapy. Due to significant neutropenia and significant [id number] expense for the fluorouracil pump, Dr. Frias has offered to change the fluorouracil portion to keep capecitabine at 1650 mg twice daily 14 days on and 7 days off. Mr. Salinas is here today to start the XELOX regimen. Plan: Discussed with patient regarding his labs white blood count 3.9 hemoglobin 12.4 crit 37.9 platelets 192,000 CMP within normal limits Clinically, patient is doing well, tolerating adjuvant chemotherapy now with capeox well but with expected side effects. We'll proceed with cycle #2 and final dose of oxaliplatin along with Xeloda, with this he will concluded his adjuvant chemotherapy and he will return to clinic in 2 weeks with CBC CMP and patient will see Dr. Hays in 8 weeks for surgical evaluation for colostomy reversal. Signed By: Jamie Frias M.D. <<Signature on File>>
[2020-01-14 13:49] LABS: Basophils % 0.9 %; Eosinophils # 0.2 10^3/uL (0.0-0.8); Eosinophils % 3.8 %; Hematocrit 37.3 % (42.0-52.0); Hemoglobin 12.1 g/dL (11.7-16.6); Lymphocytes # 0.6 10^3/uL (0.8-4.8); Lymphocytes % 12.5 %; Mean Corpuscular HGB Conc 32.4 g/dL (30.0-36.0); Mean Corpuscular Hemoglobin 33.5 pg (28.0-34.0); Mean Corpuscular Volume 103.3 fL (80-94); Mean Platelet Volume 10.3 fL (7.4-10.4); Monocytes # 0.9 10^3/uL (0.2-0.9); Neutrophils # 2.8 10^3/uL (1.8-7.7); Neutrophils % 61.6 %; Nucleated Red Blood Cells % 0 %; Platelet Count 102 10^3/cmm (130-400); Red Blood Count 3.61 10^6/uL (4.1-5.3); Red Cell Distribution Width 16.4 % (12.1-15.1); White Blood Count 4.5 10^3/uL (4.0-10.0)
[2020-01-14 14:02] LABS: Alanine Aminotransferase 31 U/L (0-41); Albumin Level 3.6 g/dL (3.5-5.2); Alkaline Phosphatase 319 IU/L (40-130); Anion Gap 17.3 (5-19); Aspartate Amino Transferase 40 U/L (0-40); Blood Urea Nitrogen 6 mg/dL (6-20); Calcium 9.4 mg/dL (8.5-10.5); Carbon Dioxide 22 mmol/L (22-29); Chloride 105 mmol/L (98-107); Glomerular Filtration Rate 142.6 mL/min (90-130); Glucose 108 mg/dL (65-115); Osmolality Calculated 288 mOsm/kg (285-295); Potassium 3.3 mmol/L (3.5-5.1); Sodium 141 mmol/L (136-145); Total Bilirubin 1.7 mg/dL (0.15-1.2); Total Protein 6.6 g/dL (6.6-8.7)
--- NOTE | 2020-01-14 16:29 | ONC FU_ITS ---
Dr. Frias follow up note Patient: Guy Salinas Unit #: [id number]: [id number] Dicatated By: Jamie Frias M.D.Date of Visit:Jan 14, 2020 Onc Med Follow-up/Prog Note History of Present Illness: Mr. Salinas is a 49 -year-old gentleman with intermittent rectal bleeding for the last couple of years. In November 2019, he presented to [facility] with progressive weakness found to have hemoglobin around 6 g. He was given blood transfusion and with that he felt better. He then underwent CT scan of abdomen and pelvis on 12/13/2018 which showed circumferential rectal wall thickening with mild perirectal edema and small perirectal lymph nodes; Descending and sigmoid diverticulosis without acute diverticulitis. And also showed 2 mm nodules at the lung bases bilaterally, no liver involvement no pelvic lymphadenopathy. Mr Salinas underwent colonoscopy on 12/14/2018 which showed at 8 cm a circumferential mass. A biopsy was obtained and the final pathology report showed infiltrating adenocarcinoma, low-grade, moderately differentiated. CEA was 2.1 Mr Salinas is on oral iron supplement, tolerating well, overall feeling well, still has rectal bleeding but off-and-on. As per patient, Dr. Miller referred him to colorectal surgeon in [place], [place] for evaluation. Mr Salinas was evaluated by Dr. Rodríguez in [place] who recommended neoadjuvant chemotherapy. Neoadjuvant combined chemoradiation therapy with oral Xeloda started on 01/28 After completion combined chemoradiation, Mr Salinas underwent sigmoid colon/rectum resection on 04/30/2019 and final pathology report shows partial response, tumor size 2 x 2.05 cm extends through muscularis propria into perirectal adipose tissue, with a clear margin no lymphovascular invasion seen 4 out of 11 lymph nodes positive. Mr Salinas started on adjuvant chemotherapy with FOLFOX every 2 weeks ???12 on 07/03/2019. Mr. Salinas has now completed 9 cycles of FOLFOX. He has required growth factor support due to chemo induced neutropenia. With cycle 9 he did not receive the Neulasta for unknown reasons and his ANC nadired at 900. His last chemotherapy treatment was November 13, 2019. . Due to significant neutropenia and significant [id number] expense for the fluorouracil pump,offered to change the fluorouracil portion to keep capecitabine at 1650 mg twice daily 14 days on and 7 days off. He states his co-pay for the capecitabine was 7 or $8. and received 1/2 capeox on 12/10/2019and second and final dose on 12/31/2019 Came for follow-up, denies any specific complaints, no nausea vomiting no mouth sores no diarrhea constipation no abdominal pain, no fever or chills Or jaundice or skin rash Medications: Allopurinol 1 Tablet (of 300 mg) Oral daily, Lisinopril 1 (40 mg) Tablet Oral daily, LORazepam 1 Tablet (of 0.5 mg) Oral t.i.d. PRN, Omeprazole 1 Tablet (of 20 mg) Tablet, enteric coated Oral daily, Prochlorperazine Maleate 1 Tablet (of 10 mg) Oral q 4 hours PRN, Ritalin 1 Tablet (of 10 mg) Oral b.i.d., Tamsulosin HCl 1 Capsule (of 0.4 mg) Oral at bedtime PRN Allergies: Cefprozil and Naproxen. Review of Systems: Constitutional - Appetite is good and weight is stable. No fever, chills, hot flashes, or night sweats. Energy level is fair, ENMT - No sinus congestion/drainage. No mouth sores. No sore throat or difficulty swallowing, Hematologic/Lymphatic - No abnormal bruising or bleeding, Respiratory - No shortness of breath. No cough. No pleuritic pain or hemoptysis, Cardiovascular - No angina pain. No palpitations, Gastrointestinal - No nausea or vomiting. No heartburn or acid reflux. No diarrhea or constipation. No blood in the stool or black stools, Genitourinary (M) - Occaional dysuria, no hematuria. No urinary frequency. No urgency or incontinence, Musculoskeletal - No joint or bone pain, Neurologic - No headache or dizziness. No numbness/paresthesias or other focal neurologic symptoms, Psychiatric - No anxiety or depression. No insomnia. Vital Signs: Performed on Jan 14, 2020 14:45 Height - 67.00 in Weight - 216.6 lbs (LOW) BSA - 2.09 sq.m BMI - 33.92 (HIGH) Temperature - 98.6 F Pulse - 96 /min Respiration - 20 /min BP - 138/70 mm(hg) O2 Sat - 96 % Pain - 0 Performance Status: 0 - Fully active, able to carry on all predisease activities without restrictions. (ECOG) Physical Examination: ENMT - No oral exudates, ulcers, masses, thrush or mucositis. Oropharynx clear. Tongue normal, Respiratory - Lungs are clear to auscultation without rhonchi or wheezing, Cardiovascular - Regular rate and rhythm of heart, Extremities - no edema. Lab/Imaging: Test performed on Dec 30, 2019 10:51 Sodium 143 mmol/L Potassium 3.3 mmol/L Chloride 108 mmol/L CO2 25 mmol/L Anion Gap 13.3 BUN 8 mg/dL Creatinine 0.6 mg/dL Cr Clearance (Est) 204.8800 mL/min eGFR 142.6 mL/min Glucose 134 mg/dL Calcium 9.4 mg/dL Protein, Total 7.1 g/dL Albumin 3.5 g/dL Globulin 3.6 g/dL Bilirubin, Total 1.0 mg/dL ALT (SGPT) 34 U/L AST (SGOT) 46 U/L Alkaline Phosphatase 262 IU/L WBC 3.9 10 3/uL RBC 3.62 10 6/uL HGB 12.4 g/dL HCT 37.9 % MCV 104.7 fL MCH 34.3 pg MCHC 32.7 g/dL RDW 17.5 % Platelet Count 192 10 3/cmm MPV 9.9 fL Neutrophils 1.9 10 3/uL Lymphocytes 0.8 10 3/uL Monocytes 0.7 10 3/uL Eosinophils 0.4 10 3/uL Basophils 0.1 10 3/uL Neutrophil % 48.9 % Lymphocyte % 20.0 % Monocyte % 18.2 % Eosinophil % 10.8 % Basophils % 1.8 % Test performed on Dec 09, 2019 11:35 Magnesium 2.1 mg/dL Test performed on Nov 12, 2019 13:15 CBC Slide Review Slide Review Perform Test performed on Oct 29, 2019 08:55 Manual Segs 52.5 % Manual Lymphocytes 17.5 % Manual Monocytes 15.0 % Manual Eosinophils 11.9 % Manual Basophils 1.7 % NRBCs 0.0 /100 WBC Impression: Infiltrating adenocarcinoma, low-grade, moderate differentiated per biopsy/colonoscopy done on 12/14/[address] scan of chest abdomen pelvis done on 12/13/2018 showed circumferential rectal wall thickening with mild perirectal edema and small perirectal lymph nodes, correlate for acute proctitis Descending and sigmoid diverticulosis without acute diverticulitis No intrahepatic lesion, no pelvic lymphadenopathy 2 mm nodules at the lung bases bilaterally. Iron deficiency anemia status post packed RBCs, now on oral iron now complaining of intolerance , Oral iron discontinued status post Injectafer 750 mg on February 01 and 2018 Esophageal stricture status post dilatation many years ago. s/p dalataion with that his dysphagia resolved and he was able to take Xeloda twice a day 5 days a week concurrent with radiation therapy, started on 01/28/19 After completion combined chemoradiation, Mr Salinas underwent sigmoid colon/rectum resection on 04/30/2019. Followup imaging showed partial response with the tumor size measuring 2 x 2.5 cm and it extends through muscularis propria into perirectal adipose tissue with clear margins, no lymphovascular invasion seen, 4 out of 11 lymph nodes were positive for metastatic disease Mr Salinas was offered adjuvant chemotherapy with FOLFOX ???12 on 07/03/2019. Mr. Salinas has now completed 9 cycles of FOLFOX. He has required growth factor support due to chemo induced neutropenia. With cycle 9 he did not receive the Neulasta for unknown reasons and his ANC nadired at 900. His last chemotherapy treatment was November 13, 2019. Mr. Salinas is here today for follow-up and consideration of chemotherapy. Due to significant neutropenia and significant [id number] expense for the fluorouracil pump, has offered to change the fluorouracil portion to keep capecitabine at 1650 mg twice daily 14 days on and 7 days off. patient received two doses of capeox and completed on 12/31/2019 Plan: Discussed with patient regarding his labs white blood count 4.5 hemoglobin 12.1 crit 37.3 platelets 102,000 ANC 2800 CMP within normal limit except progressive alkaline phosphatase now with mildly elevated bilirubin within normal transaminases Clinically, patient is doing well, has completed adjuvant systemic chemotherapy with FOLFOX, later on switched to capeox because of copayment. Now recovering from adjuvant chemotherapy his follow-up lab showed progressive alkaline phosphatase and now with mildly elevated bilirubin etiology unclear would be due to liver toxicity or common bile duct obstruction. Patient is not symptomatic. His lab also showed mild thrombocytopenia. And mild hypokalemia. We will supplement potassium e.g. KCl 20 mg by mouth daily for 3 days then as needed and repeat CBC and CMP in 1 week if there is no resolution of elevated bilirubin or alkaline phosphatase we will consider right upper quadrant sonogram and also follow with potassium level and platelets. Patient return to clinic in 1 week with CBC CMP. Patient is scheduled to see Dr. Hays in February 2020 for ileostomy reversal Signed By: Jamie Frias M.D. <<Signature on File>>
== END 2020-01-14 23:59 | disposition home or self-care (01) ==
LOC: ONCMED 06:37
PROVIDERS: Nurse Practitioner; Absent Provider Internal Medicine Hematology & Oncology; Family Provider Family Medicine; PCP Family Medicine; Visit Provider Internal Medicine Hematology & Oncology
DX: Z51.11 Encounter for antineoplastic chemotherapy (principal); C20 Malignant neoplasm of rectum; R91.8 Other nonspecific abnormal finding of lung field; R74.8 Abnormal levels of other serum enzymes; D69.6 Thrombocytopenia, unspecified; E87.6 Hypokalemia; R17 Unspecified jaundice; Z79.899 Other long term (current) drug therapy; Z93.2 Ileostomy status; Z92.3 Personal history of irradiation
CPT/HCPCS: 36415; 36591; 80053; 85025; 96367; 96413; 96415; 99214; J1100; J2469; J9263

== ENCOUNTER 2020-02-03 06:44 | Outpatient (RCR) | payer OTHER, SELFPAY ==
[2020-01-20 12:15] LABS: Basophils # 0.1 10^3/uL (0.0-0.1); Basophils % 1.5 %; Eosinophils # 0.4 10^3/uL (0.0-0.8); Eosinophils % 12.1 %; Hematocrit 36.8 % (42.0-52.0); Hemoglobin 11.7 g/dL (11.7-16.6); Lymphocytes # 0.5 10^3/uL (0.8-4.8); Mean Corpuscular HGB Conc 31.8 g/dL (30.0-36.0); Mean Corpuscular Hemoglobin 33.3 pg (28.0-34.0); Mean Corpuscular Volume 104.8 fL (80-94); Monocytes # 0.8 10^3/uL (0.2-0.9); Neutrophils # 1.6 10^3/uL (1.8-7.7); Neutrophils % 47.1 %; Nucleated Red Blood Cells % 0 %; Platelet Count 135 10^3/cmm (130-400); Red Blood Count 3.51 10^6/uL (4.1-5.3); Red Cell Distribution Width 16.3 % (12.1-15.1); White Blood Count 3.3 10^3/uL (4.0-10.0)
[2020-01-20 12:28] LABS: Alanine Aminotransferase 33 U/L (0-41); Albumin Level 3.5 g/dL (3.5-5.2); Alkaline Phosphatase 353 IU/L (40-130); Anion Gap 15.7 (5-19); Aspartate Amino Transferase 48 U/L (0-40); Blood Urea Nitrogen 5 mg/dL (6-20); Calcium 9.3 mg/dL (8.5-10.5); Carbon Dioxide 20 mmol/L (22-29); Chloride 111 mmol/L (98-107); Globulin 3.8 g/dL (1.3-4.6); Glomerular Filtration Rate 142.6 mL/min (90-130); Glucose 140 mg/dL (65-115); Osmolality Calculated 294 mOsm/kg (285-295); Potassium 3.7 mmol/L (3.5-5.1); Sodium 143 mmol/L (136-145); Total Bilirubin 0.9 mg/dL (0.15-1.2); Total Protein 7.3 g/dL (6.6-8.7)
--- NOTE | 2020-01-20 14:03 | ONC FU_ITS ---
Dr. Frias follow up note Patient: Guy Salinas Unit #: [id number]: 1970 Dicatated By: Jamie Frias M.D.Date of Visit:Jan 20, 2020 Onc Med Follow-up/Prog Note History of Present Illness: Mr. Salinas is a 49 -year-old gentleman with intermittent rectal bleeding for the last couple of years. In November 2019, he presented to [facility] with progressive weakness found to have hemoglobin around 6 g. He was given blood transfusion and with that he felt better. He then underwent CT scan of abdomen and pelvis on 12/13/2018 which showed circumferential rectal wall thickening with mild perirectal edema and small perirectal lymph nodes; Descending and sigmoid diverticulosis without acute diverticulitis. And also showed 2 mm nodules at the lung bases bilaterally, no liver involvement no pelvic lymphadenopathy. Mr Salinas underwent colonoscopy on 12/14/2018 which showed at 8 cm a circumferential mass. A biopsy was obtained and the final pathology report showed infiltrating adenocarcinoma, low-grade, moderately differentiated. CEA was 2.1 Mr Salinas is on oral iron supplement, tolerating well, overall feeling well, still has rectal bleeding but off-and-on. As per patient, Dr. Miller referred him to colorectal surgeon in [place], [place] for evaluation. Mr Salinas was evaluated by Dr. Rodríguez in [place] who recommended neoadjuvant chemotherapy. Neoadjuvant combined chemoradiation therapy with oral Xeloda started on 01/28 After completion combined chemoradiation, Mr Salinas underwent sigmoid colon/rectum resection on 04/30/2019 and final pathology report shows partial response, tumor size 2 x 2.05 cm extends through muscularis propria into perirectal adipose tissue, with a clear margin no lymphovascular invasion seen 4 out of 11 lymph nodes positive. Mr Salinas started on adjuvant chemotherapy with FOLFOX every 2 weeks ???12 on 07/03/2019. . Due to significant neutropenia and significant [id number] expense for the fluorouracil pump,offered to change the fluorouracil portion to keep capecitabine at 1650 mg twice daily 14 days on and 7 days off. He states his co-pay for the capecitabine was 7 or $8. and received 1/2 capeox on 12/10/2019and second and final dose on 12/31/2019 Came for follow-up, denies any specific complaints, no fever or chills, no nausea or vomiting, no jaundice, no abdominal pain, no diarrhea constipation. No bony pains. Medications: Allopurinol 1 Tablet (of 300 mg) Oral daily, Lisinopril 1 (40 mg) Tablet Oral daily, LORazepam 1 Tablet (of 0.5 mg) Oral t.i.d. PRN, Omeprazole 1 Tablet (of 20 mg) Tablet, enteric coated Oral daily, Prochlorperazine Maleate 1 Tablet (of 10 mg) Oral q 4 hours PRN, Ritalin 1 Tablet (of 10 mg) Oral b.i.d., Tamsulosin HCl 1 Capsule (of 0.4 mg) Oral at bedtime PRN Allergies: Cefprozil and Naproxen. Review of Systems: Constitutional - Appetite is good and weight is stable. No fever, chills, hot flashes, or night sweats. Energy level is fair, ENMT - No sinus congestion/drainage. No mouth sores. No sore throat or difficulty swallowing, Hematologic/Lymphatic - No abnormal bruising or bleeding, Respiratory - No shortness of breath. No cough. No pleuritic pain or hemoptysis, Cardiovascular - No angina pain. No palpitations, Gastrointestinal - No nausea or vomiting. No heartburn or acid reflux. No diarrhea or constipation. No blood in the stool or black stools, Genitourinary (M) - Occaional dysuria, no hematuria. No urinary frequency. No urgency or incontinence, Musculoskeletal - No joint or bone pain, Neurologic - No headache or dizziness. No numbness/paresthesias or other focal neurologic symptoms, Psychiatric - No anxiety or depression. No insomnia. Vital Signs: Performed on Jan 20, 2020 13:30 Height - 67.00 in Weight - 217.6 lbs (HIGH) BSA - 2.10 sq.m BMI - 34.08 (HIGH) Temperature - 99.4 F (HIGH) Pulse - 104 /min (HIGH) Respiration - 18 /min BP - 138/62 mm(hg) O2 Sat - 98 % Pain - 0 Performance Status: 0 - Fully active, able to carry on all predisease activities without restrictions. (ECOG) Physical Examination: ENMT - No oral exudates, ulcers, masses, thrush or mucositis. Oropharynx clear. Tongue normal, Respiratory - denies any wheezing or shortness of breath, Cardiovascular - denies any tachycardia palpitation, Abdomen - denies any abdominal pain or fullness, Extremities - no edema or rash observed. Lab/Imaging: Test performed on Jan 14, 2020 13:30 Sodium 141 mmol/L Potassium 3.3 mmol/L Chloride 105 mmol/L CO2 22 mmol/L Anion Gap 17.3 BUN 6 mg/dL Creatinine 0.6 mg/dL Cr Clearance (Est) 204.8800 mL/min eGFR 142.6 mL/min Glucose 108 mg/dL Calcium 9.4 mg/dL Protein, Total 6.6 g/dL Albumin 3.6 g/dL Globulin 3.0 g/dL Bilirubin, Total 1.7 mg/dL ALT (SGPT) 31 U/L AST (SGOT) 40 U/L Alkaline Phosphatase 319 IU/L WBC 4.5 10 3/uL RBC 3.61 10 6/uL HGB 12.1 g/dL HCT 37.3 % MCV 103.3 fL MCH 33.5 pg MCHC 32.4 g/dL RDW 16.4 % Platelet Count 102 10 3/cmm MPV 10.3 fL Neutrophils 2.8 10 3/uL Lymphocytes 0.6 10 3/uL Monocytes 0.9 10 3/uL Eosinophils 0.2 10 3/uL Basophils 0.0 10 3/uL Neutrophil % 61.6 % Lymphocyte % 12.5 % Monocyte % 21.0 % Eosinophil % 3.8 % Basophils % 0.9 % Test performed on Dec 09, 2019 11:35 Magnesium 2.1 mg/dL Test performed on Nov 12, 2019 13:15 CBC Slide Review Slide Review Perform Test performed on Oct 29, 2019 08:55 Manual Segs 52.5 % Manual Lymphocytes 17.5 % Manual Monocytes 15.0 % Manual Eosinophils 11.9 % Manual Basophils 1.7 % NRBCs 0.0 /100 WBC Impression: Infiltrating adenocarcinoma, low-grade, moderate differentiated per biopsy/colonoscopy done on 12/14/2018 [address] scan of chest abdomen pelvis done on 12/13/2018 showed circumferential rectal wall thickening with mild perirectal edema and small perirectal lymph nodes, correlate for acute proctitis Descending and sigmoid diverticulosis without acute diverticulitis No intrahepatic lesion, no pelvic lymphadenopathy 2 mm nodules at the lung bases bilaterally. Iron deficiency anemia status post packed RBCs, now on oral iron now complaining of intolerance , Oral iron discontinued status post Injectafer 750 mg on February 01 and 2018 Esophageal stricture status post dilatation many years ago. s/p dalataion with that his dysphagia resolved and he was able to take Xeloda twice a day 5 days a week concurrent with radiation therapy, started on 01/28/19 After completion combined chemoradiation, Mr Salinas underwent sigmoid colon/rectum resection on 04/30/2019. Followup imaging showed partial response with the tumor size measuring 2 x 2.5 cm and it extends through muscularis propria into perirectal adipose tissue with clear margins, no lymphovascular invasion seen, 4 out of 11 lymph nodes were positive for metastatic disease Mr Salinas was offered adjuvant chemotherapy with FOLFOX ???12 on 07/03/2019. Mr. Salinas has now completed 9 cycles of FOLFOX. He has required growth factor support due to chemo induced neutropenia. With cycle 9 he did not receive the Neulasta for unknown reasons and his ANC nadired at 900. His last chemotherapy treatment was November 13, 2019. Mr. Salinas is here today for follow-up and consideration of chemotherapy. Due to significant neutropenia and significant [id number] expense for the fluorouracil pump, has offered to change the fluorouracil portion to keep capecitabine at 1650 mg twice daily 14 days on and 7 days off. patient received two doses of capeox and completed on 12/31/2019 Plan: Discussed with patient regarding his labs white blood count 3.3 hemoglobin 11.7 crit 36.8 platelets 135,000 compared to 102,000 last week CMP within normal limit except alkaline phosphatase 353 month AST 48, ALT 33 Clinically, patient is doing well with no new signs symptoms his follow-up lab shows normalization of mild thrombocytopenia, and resolution of hypokalemia with supplements. Mild leukopenia. Also normalization of mild hyperbilirubinemia but alkaline phosphatase is still elevated along with mildly elevated transaminases. Etiology unclear, will continue to monitor and repeat his CBC CMP in 2 weeks if there is no improvement in her alkaline phosphatase and LFTs then will consider right upper quadrant sonogram. Signed By: Jamie Frias M.D. <<Signature on File>>
[2020-02-03 15:03] LABS: Basophils # 0.1 10^3/uL (0.0-0.1); Basophils % 1.2 %; Eosinophils # 0.3 10^3/uL (0.0-0.8); Eosinophils % 8.1 %; Hematocrit 37.4 % (42.0-52.0); Hemoglobin 11.8 g/dL (11.7-16.6); Lymphocytes # 0.6 10^3/uL (0.8-4.8); Lymphocytes % 15.2 %; Mean Corpuscular HGB Conc 31.6 g/dL (30.0-36.0); Mean Corpuscular Hemoglobin 32.5 pg (28.0-34.0); Mean Platelet Volume 10.4 fL (7.4-10.4); Monocytes # 0.6 10^3/uL (0.2-0.9); Monocytes % 15.2 %; Neutrophils # 2.5 10^3/uL (1.8-7.7); Neutrophils % 60.3 %; Nucleated Red Blood Cells % 0 %; Platelet Count 107 10^3/cmm (130-400); Red Blood Count 3.63 10^6/uL (4.1-5.3); Red Cell Distribution Width 15.7 % (12.1-15.1); White Blood Count 4.1 10^3/uL (4.0-10.0)
[2020-02-03 15:23] LABS: Alanine Aminotransferase 28 U/L (0-41); Albumin Level 3.7 g/dL (3.5-5.2); Alkaline Phosphatase 287 IU/L (40-130); Anion Gap 15.4 (5-19); Aspartate Amino Transferase 38 U/L (0-40); Blood Urea Nitrogen 8 mg/dL (6-20); Calcium 9.5 mg/dL (8.5-10.5); Carbon Dioxide 23 mmol/L (22-29); Chloride 107 mmol/L (98-107); Globulin 3.4 g/dL (1.3-4.6); Glomerular Filtration Rate 142.6 mL/min (90-130); Glucose 102 mg/dL (65-115); Osmolality Calculated 290 mOsm/kg (285-295); Potassium 3.4 mmol/L (3.5-5.1); Sodium 142 mmol/L (136-145); Total Bilirubin 1.2 mg/dL (0.15-1.2); Total Protein 7.1 g/dL (6.6-8.7)
--- NOTE | 2020-02-03 17:17 | ONC FU_ITS ---
Dr. Frias follow up note Patient: Guy Salinas Unit #: [id number]: 1970 Dicatated By: Jamie Frias M.D.Date of Visit:Feb 03, 2020 Onc Med Follow-up/Prog Note History of Present Illness: Mr. Salinas is a 49 -year-old gentleman with intermittent rectal bleeding for the last couple of years. In November 2019, he presented to [facility] [place] [facility] with progressive weakness found to have hemoglobin around 6 g. He was given blood transfusion and with that he felt better. He then underwent CT scan of abdomen and pelvis on 12/13/2018 which showed circumferential rectal wall thickening with mild perirectal edema and small perirectal lymph nodes; Descending and sigmoid diverticulosis without acute diverticulitis. And also showed 2 mm nodules at the lung bases bilaterally, no liver involvement no pelvic lymphadenopathy. Mr Salinas underwent colonoscopy on 12/14/2018 which showed at 8 cm a circumferential mass. A biopsy was obtained and the final pathology report showed infiltrating adenocarcinoma, low-grade, moderately differentiated. CEA was 2.1 Mr Salinas is on oral iron supplement, tolerating well, overall feeling well, still has rectal bleeding but off-and-on. As per patient, Dr. Miller referred him to colorectal surgeon in [place], [place] for evaluation. Mr Salinas was evaluated by Dr. Rodríguez in [place] who recommended neoadjuvant chemotherapy. Neoadjuvant combined chemoradiation therapy with oral Xeloda started on 01/28 After completion combined chemoradiation, Mr Salinas underwent sigmoid colon/rectum resection on 04/30/2019 and final pathology report shows partial response, tumor size 2 x 2.05 cm extends through muscularis propria into perirectal adipose tissue, with a clear margin no lymphovascular invasion seen 4 out of 11 lymph nodes positive. Mr Salinas started on adjuvant chemotherapy with FOLFOX every 2 weeks ???12 on 07/03/2019. . Due to significant neutropenia and significant [id number] expense for the fluorouracil pump,offered to change the fluorouracil portion to keep capecitabine at 1650 mg twice daily 14 days on and 7 days off. He states his co-pay for the capecitabine was 7 or $8. and received 1/2 capeox on 12/10/2019and second and final dose on 12/31/2019 Came for follow-up, except persistent numbness in the feet since surgery and fingertips but no further worsening, can button and unbutton his shirt without problem. also complaining of mild bipedal edema, especially in the afternoons. Denies any mouth sores denies any diarrhea or constipation denies any jaundice, colostomy is working fine. He is scheduled to see Dr. Hays on 02/19/2020 for evaluation for colostomy closure. Medications: Allopurinol 1 Tablet (of 300 mg) Oral daily, Lisinopril 1 (40 mg) Tablet Oral daily, LORazepam 1 Tablet (of 0.5 mg) Oral t.i.d. PRN, Omeprazole 1 Tablet (of 20 mg) Tablet, enteric coated Oral daily, Prochlorperazine Maleate 1 Tablet (of 10 mg) Oral q 4 hours PRN, Ritalin 1 Tablet (of 10 mg) Oral b.i.d., Tamsulosin HCl 1 Capsule (of 0.4 mg) Oral at bedtime PRN Allergies: Cefprozil and Naproxen. Review of Systems: Review of Systems is not available for this patient. Vital Signs: Performed on Feb 03, 2020 14:54 Height - 67.00 in Weight - 215 lbs (LOW) BSA - 2.09 sq.m BMI - 33.67 (HIGH) Temperature - 97.7 F (LOW) Pulse - 81 /min Respiration - 16 /min BP - 142/77 mm(hg) (HIGH) O2 Sat - 98 % Pain - 3 Performance Status: 0 - Fully active, able to carry on all predisease activities without restrictions. (ECOG) Physical Examination: ENMT - no sores, no thrush, Respiratory - Lungs are clear to auscultation, Cardiovascular - Regular rate and rhythm of heart, Abdomen - nontender, colostomy functioning fine, no distention, Extremities - trace edema bilaterally. Lab/Imaging: Test performed on Jan 20, 2020 11:58 Sodium 143 mmol/L Potassium 3.7 mmol/L Chloride 111 mmol/L CO2 20 mmol/L Anion Gap 15.7 BUN 5 mg/dL Creatinine 0.6 mg/dL Cr Clearance (Est) 204.8800 mL/min eGFR 142.6 mL/min Glucose 140 mg/dL Calcium 9.3 mg/dL Protein, Total 7.3 g/dL Albumin 3.5 g/dL Globulin 3.8 g/dL Bilirubin, Total 0.9 mg/dL ALT (SGPT) 33 U/L AST (SGOT) 48 U/L Alkaline Phosphatase 353 IU/L WBC 3.3 10 3/uL RBC 3.51 10 6/uL HGB 11.7 g/dL HCT 36.8 % MCV 104.8 fL MCH 33.3 pg MCHC 31.8 g/dL RDW 16.3 % Platelet Count 135 10 3/cmm MPV 10.0 fL Neutrophils 1.6 10 3/uL Lymphocytes 0.5 10 3/uL Monocytes 0.8 10 3/uL Eosinophils 0.4 10 3/uL Basophils 0.1 10 3/uL Neutrophil % 47.1 % Lymphocyte % 16.0 % Monocyte % 23.0 % Eosinophil % 12.1 % Basophils % 1.5 % Test performed on Dec 09, 2019 11:35 Magnesium 2.1 mg/dL Test performed on Nov 12, 2019 13:15 CBC Slide Review Slide Review Perform Test performed on Oct 29, 2019 08:55 Manual Segs 52.5 % Manual Lymphocytes 17.5 % Manual Monocytes 15.0 % Manual Eosinophils 11.9 % Manual Basophils 1.7 % NRBCs 0.0 /100 WBC Impression: Infiltrating adenocarcinoma, low-grade, moderate differentiated per biopsy/colonoscopy done on 12/14/[address] scan of chest abdomen pelvis done on 12/13/2018 showed circumferential rectal wall thickening with mild perirectal edema and small perirectal lymph nodes, correlate for acute proctitis Descending and sigmoid diverticulosis without acute diverticulitis No intrahepatic lesion, no pelvic lymphadenopathy 2 mm nodules at the lung bases bilaterally. Iron deficiency anemia status post packed RBCs, now on oral iron now complaining of intolerance , Oral iron discontinued status post Injectafer 750 mg on February 01 and 2018 Esophageal stricture status post dilatation many years ago. s/p dalataion with that his dysphagia resolved and he was able to take Xeloda twice a day 5 days a week concurrent with radiation therapy, started on 01/28/19 After completion combined chemoradiation, Mr Salinas underwent sigmoid colon/rectum resection on 04/30/2019. Followup imaging showed partial response with the tumor size measuring 2 x 2.5 cm and it extends through muscularis propria into perirectal adipose tissue with clear margins, no lymphovascular invasion seen, 4 out of 11 lymph nodes were positive for metastatic disease Mr Salinas was offered adjuvant chemotherapy with FOLFOX ???12 on 07/03/2019. Mr. Salinas has now completed 9 cycles of FOLFOX. He has required growth factor support due to chemo induced neutropenia. With cycle 9 he did not receive the Neulasta for unknown reasons and his ANC nadired at 900. His last chemotherapy treatment was November 13, 2019. Mr. Salinas is here today for follow-up and consideration of chemotherapy. Due to significant neutropenia and significant [id number] expense for the fluorouracil pump, has offered to change the fluorouracil portion to keep capecitabine at 1650 mg twice daily 14 days on and 7 days off. patient received two doses of capeox and completed on 12/31/2019 Plan: Discussed with patient regarding his labs white blood count 4.1 hemoglobin 11.8 crit 37.4 platelets 107,000, CMP is pending Clinically, patient is doing well, now recovering from adjuvant chemotherapy. His neutropenia has resolved hemoglobin is now normal range, platelet count fluctuating today 107,000 compared to 135,000 on 01/20/2020. His CMP done on 01/20/2020 showed normalization of hyperbilirubinemia but mildly elevated AST. And today's CMP is pending.as far as bipedal trace edema is concern, patient is taking excessive salt intake, patient was advised to cut down his salt in diet, hopefully edema will resolve. Overall , patient is feeling well, recovering well from adjuvant chemotherapy except chronic grade 1 peripheral neuropathy and patient is scheduled to see Dr. shepherd, as per patient follow-up workup including scans or colonoscopy will be scheduled prior to surgery. We will see him back 2 weeks after the surgery. With CBC CMP, In the meantime, continue with monthly port maintenance Signed By: Jamie Frias M.D. <<Signature on File>>
== END 2020-02-13 23:59 | disposition home or self-care (01) ==
LOC: ONCMED 06:44
PROVIDERS: Absent Provider Internal Medicine Hematology & Oncology; Family Provider Family Medicine; PCP Family Medicine; Visit Provider Internal Medicine Hematology & Oncology
DX: C20 Malignant neoplasm of rectum (principal); D50.9 Iron deficiency anemia, unspecified; K21.9 Gastro-esophageal reflux disease without esophagitis; I10 Essential (primary) hypertension; M10.9 Gout, unspecified; G62.9 Polyneuropathy, unspecified; Z92.21 Personal history of antineoplastic chemotherapy; Z79.899 Other long term (current) drug therapy
CPT/HCPCS: 36415; 36591; 80053; 85025; 99214

== ENCOUNTER 2020-03-02 07:07 | Outpatient (RCR) | payer OTHER, SELFPAY | END 2020-03-15 23:59 | disposition home or self-care (01) | LOC: ONCMED 07:07 | PROVIDERS: PCP Family Medicine; Visit Provider Internal Medicine Hematology & Oncology | DX: Z45.2 Encounter for adjustment and management of vascular access device (principal); C20 Malignant neoplasm of rectum | CPT/HCPCS: 96523 ==

== ENCOUNTER 2020-04-03 06:53 | Outpatient (RCR) | payer OTHER, SELFPAY | END 2020-04-14 23:59 | disposition home or self-care (01) | LOC: ONCMED 06:53 | PROVIDERS: PCP Family Medicine; Visit Provider Internal Medicine Hematology & Oncology | DX: Z45.2 Encounter for adjustment and management of vascular access device (principal) | CPT/HCPCS: 96523 ==

== ENCOUNTER 2020-05-04 06:59 | Outpatient (RCR) | payer OTHER, SELFPAY ==
[2020-05-04 12:20] LABS: Basophils # 0.1 10^3/uL (0.0-0.1); Basophils % 0.9 %; Eosinophils # 0.4 10^3/uL (0.0-0.8); Hematocrit 38.7 % (42.0-52.0); Hemoglobin 12.4 g/dL (11.7-16.6); Lymphocytes # 0.8 10^3/uL (0.8-4.8); Lymphocytes % 10.6 %; Mean Corpuscular Hemoglobin 31.9 pg (28.0-34.0); Mean Corpuscular Volume 99.5 fL (80-94); Mean Platelet Volume 9.3 fL (7.4-10.4); Monocytes # 0.7 10^3/uL (0.2-0.9); Monocytes % 9.2 %; Neutrophils # 5.22 10^3/uL (1.8-7.7); Nucleated Red Blood Cells % 0 %; Platelet Count 248 10^3/cmm (130-400); Red Blood Count 3.89 10^6/uL (4.1-5.3); Red Cell Distribution Width 14.4 % (12.1-15.1); White Blood Count 7.1 10^3/uL (4.0-10.0)
[2020-05-04 12:38] LABS: Alanine Aminotransferase 27 U/L (0-41); Albumin Level 3.6 g/dL (3.5-5.2); Alkaline Phosphatase 243 IU/L (40-130); Anion Gap 10.7 (5-19); Aspartate Amino Transferase 22 U/L (0-40); Blood Urea Nitrogen 7 mg/dL (6-20); Calcium 8.6 mg/dL (8.5-10.5); Carbon Dioxide 28 mmol/L (22-29); Chloride 105 mmol/L (98-107); Globulin 3.3 g/dL (1.3-4.6); Glomerular Filtration Rate 102.3 mL/min (90-130); Glucose 118 mg/dL (65-115); Osmolality Calculated 287 mOsm/kg (285-295); Potassium 3.7 mmol/L (3.5-5.1); Sodium 140 mmol/L (136-145); Total Bilirubin 0.4 mg/dL (0.15-1.2); Total Protein 6.9 g/dL (6.6-8.7)
--- NOTE | 2020-05-04 15:29 | ONC FU_ITS ---
Dr. Frias follow up note Patient: Guy Salinas Unit #: [id number]: 1970 Dicatated By: Jamie Frias M.D.Date of Visit:May 04, 2020 Onc Med Follow-up/Prog Note History of Present Illness: Mr. Salinas is a 49 -year-old gentleman with intermittent rectal bleeding for the last couple of years. In November 2019, he presented to [facility] [place] [facility] with progressive weakness found to have hemoglobin around 6 g. He was given blood transfusion and with that he felt better. He then underwent CT scan of abdomen and pelvis on 12/13/2018 which showed circumferential rectal wall thickening with mild perirectal edema and small perirectal lymph nodes; Descending and sigmoid diverticulosis without acute diverticulitis. And also showed 2 mm nodules at the lung bases bilaterally, no liver involvement no pelvic lymphadenopathy. Mr Salinas underwent colonoscopy on 12/14/2018 which showed at 8 cm a circumferential mass. A biopsy was obtained and the final pathology report showed infiltrating adenocarcinoma, low-grade, moderately differentiated. CEA was 2.1 Mr Salinas is on oral iron supplement, tolerating well, overall feeling well, still has rectal bleeding but off-and-on. As per patient, Dr. Miller referred him to colorectal surgeon in [place], [place] for evaluation. Mr Salinas was evaluated by Dr. Rodríguez in [place] who recommended neoadjuvant chemotherapy. Neoadjuvant combined chemoradiation therapy with oral Xeloda started on 01/28 After completion combined chemoradiation, Mr Salinas underwent sigmoid colon/rectum resection on 04/30/2019 and final pathology report shows partial response, tumor size 2 x 2.05 cm extends through muscularis propria into perirectal adipose tissue, with a clear margin no lymphovascular invasion seen 4 out of 11 lymph nodes positive. Mr Salinas started on adjuvant chemotherapy with FOLFOX every 2 weeks ???12 on 07/03/2019. . Due to significant neutropenia and significant [id number] expense for the fluorouracil pump,offered to change the fluorouracil portion to keep capecitabine at 1650 mg twice daily 14 days on and 7 days off. He states his co-pay for the capecitabine was 7 or $8. and received 1/2 capeox on 12/10/2019and second and final dose on 12/31/2019 .Came for follow-up, denies any specific complaints, no nausea or vomiting, no diarrhea or constipation but frequent bowel movement because of rectal surgery for rectal CA and status post combined chemoradiation therapy. Also has neuropathy in lower pelvis/genital area since primary surgery for rectal cancer. Patient says sometimes he can feel numbness inside the inner thighs. But denies any trauma to his back or back pain denies any urinary incontinence but erectile dysfunction. As per patient he did discuss with Dr. martinez in the past but not recently. 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 Patient underwent ileostomy reversal on April 23, 2020 and now scheduled to see Dr. Martinez again on May 13, 2020, as per patient he was told everything looks great. Medications: Allopurinol 1 Tablet (of 300 mg) Oral daily, Lisinopril 1 (40 mg) Tablet Oral daily, LORazepam 1 Tablet (of 0.5 mg) Oral t.i.d. PRN, Omeprazole 1 Tablet (of 20 mg) Tablet, enteric coated Oral daily, Prochlorperazine Maleate 1 Tablet (of 10 mg) Oral q 4 hours PRN, Ritalin 1 Tablet (of 10 mg) Oral b.i.d., Tamsulosin HCl 1 Capsule (of 0.4 mg) Oral at bedtime PRN Allergies: Cefprozil and Naproxen. Review of Systems: Constitutional - Appetite is good and weight is stable. No fever, chills, hot flashes, or night sweats. Energy level is fair, ENMT - No sinus congestion/drainage. No mouth sores. No sore throat or difficulty swallowing, Hematologic/Lymphatic - No abnormal bruising or bleeding, Respiratory - No shortness of breath. No cough. No pleuritic pain or hemoptysis, Cardiovascular - No angina pain. No palpitations, Gastrointestinal - No nausea or vomiting. No heartburn or acid reflux. No diarrhea or constipation. No blood in the stool or black stools, Genitourinary (M) - Occasional dysuria, no hematuria. No urinary frequency. No urgency or incontinence, Musculoskeletal - No joint or bone pain, Neurologic - No headache or dizziness. No numbness/paresthesias or other focal neurologic symptoms, Psychiatric - No anxiety or depression. No insomnia. Vital Signs: Performed on May 04, 2020 13:48 Height - 67.00 in Weight - 219.0 lbs (HIGH) BSA - 2.10 sq.m BMI - 34.30 (HIGH) Temperature - 98.2 F (LOW) Pulse - 80 /min Respiration - 18 /min BP - 132/79 mm(hg) O2 Sat - 97 % Pain - 0 Performance Status: 0 - Fully active, able to carry on all predisease activities without restrictions. (ECOG) Physical Examination: ENMT - No mouth sores, no thrush or jaundice, Respiratory - Lungs are clear, Cardiovascular - Regular rate and rhythm of heart, Abdomen - Soft, bowel sounds present, Extremities - No visible edema. Lab/Imaging: Test performed on Feb 03, 2020 14:40 Sodium 142 mmol/L Potassium 3.4 mmol/L Chloride 107 mmol/L CO2 23 mmol/L Anion Gap 15.4 BUN 8 mg/dL Creatinine 0.6 mg/dL Cr Clearance (Est) 204.8800 mL/min eGFR 142.6 mL/min Glucose 102 mg/dL Calcium 9.5 mg/dL Protein, Total 7.1 g/dL Albumin 3.7 g/dL Globulin 3.4 g/dL Bilirubin, Total 1.2 mg/dL ALT (SGPT) 28 U/L AST (SGOT) 38 U/L Alkaline Phosphatase 287 IU/L WBC 4.1 10 3/uL RBC 3.63 10 6/uL HGB 11.8 g/dL HCT 37.4 % MCV 103.0 fL MCH 32.5 pg MCHC 31.6 g/dL RDW 15.7 % Platelet Count 107 10 3/cmm MPV 10.4 fL Neutrophils 2.5 10 3/uL Lymphocytes 0.6 10 3/uL Monocytes 0.6 10 3/uL Eosinophils 0.3 10 3/uL Basophils 0.1 10 3/uL Neutrophil % 60.3 % Lymphocyte % 15.2 % Monocyte % 15.2 % Eosinophil % 8.1 % Basophils % 1.2 % Test performed on Dec 09, 2019 11:35 Magnesium 2.1 mg/dL Test performed on Nov 12, 2019 13:15 CBC Slide Review Slide Review Perform Impression: Infiltrating adenocarcinoma, low-grade, moderate differentiated per biopsy/colonoscopy done on 12/14/2018 [address]A was [address]1 [address] scan of chest abdomen pelvis done on 12/13/2018 showed circumferential rectal wall thickening with mild perirectal edema and small perirectal lymph nodes, correlate for acute proctitis Descending and sigmoid diverticulosis without acute diverticulitis No intrahepatic lesion, no pelvic lymphadenopathy 2 mm nodules at the lung bases bilaterally. Iron deficiency anemia status post packed RBCs, now on oral iron now complaining of intolerance , Oral iron discontinued status post Injectafer 750 mg on February 01 and 2018 Esophageal stricture status post dilatation many years ago. s/p dalataion with that his dysphagia resolved and he was able to take Xeloda twice a day 5 days a week concurrent with radiation therapy, started on 01/28/19 After completion combined chemoradiation, Mr Salinas underwent sigmoid colon/rectum resection on 04/30/2019. Followup imaging showed partial response with the tumor size measuring 2 x 2.5 cm and it extends through muscularis propria into perirectal adipose tissue with clear margins, no lymphovascular invasion seen, 4 out of 11 lymph nodes were positive for metastatic disease Mr Salinas was offered adjuvant chemotherapy with FOLFOX ???12 on 07/03/2019. Mr. Salinas has now completed 9 cycles of FOLFOX. He has required growth factor support due to chemo induced neutropenia. With cycle 9 he did not receive the Neulasta for unknown reasons and his ANC nadired at 900. His last chemotherapy treatment was November 13, 2019. Mr. Salinas is here today for follow-up and consideration of chemotherapy. Due to significant neutropenia and significant [id number] expense for the fluorouracil pump, has offered to change the fluorouracil portion to keep capecitabine at 1650 mg twice daily 14 days on and 7 days off. patient received two doses of capeox and completed on 12/31/2019 Plan: Discussed with patient regarding his labs white blood count 7.1 hemoglobin 12.4 hematocrit 38.7 platelets 248,000 CMP within normal limits Clinically, patient is doing well with no signs symptoms suggestive of recurrence of disease, recently underwent ileostomy/colostomy reversal and tolerated procedure well his lab work-up showed resolution of leukopenia and anemia. We will obtain records from Dr. martinez's office regarding recent surgery and colonoscopy and then patient return to clinic in 4 months with CBC CMP. Patient was also advised to discuss with Dr. Martinez regarding persistent neuropathy involving groin/genital area and may benefit from neurology evaluation. Or urology as per his erectile dysfunction is concerned. In the meantime continue with port maintenance on monthly basis Signed By: Jamie Frias M.D. <<Signature on File>>
== END 2020-05-15 23:59 | disposition home or self-care (01) ==
LOC: ONCMED 06:59
PROVIDERS: PCP Family Medicine; Visit Provider Internal Medicine Hematology & Oncology
DX: K21.9 Gastro-esophageal reflux disease without esophagitis; I10 Essential (primary) hypertension; Z08 Encounter for follow-up examination after completed treatment for malignant neoplasm; Z85.048 Personal history of other malignant neoplasm of rectum, rectosigmoid junction, and anus; Z92.21 Personal history of antineoplastic chemotherapy; Z92.3 Personal history of irradiation
CPT/HCPCS: 36591; 80053; 85025; G0463

== ENCOUNTER 2020-06-04 06:02 | Outpatient (RCR) | payer OTHER, SELFPAY | END 2020-06-15 23:59 | disposition home or self-care (01) | LOC: ONCMED 06:02 | PROVIDERS: PCP Family Medicine; Visit Provider Internal Medicine Hematology & Oncology | DX: Z45.2 Encounter for adjustment and management of vascular access device (principal) | CPT/HCPCS: 96523 ==

== ENCOUNTER 2020-07-06 12:12 | Outpatient (CLI) | payer OTHER, SELFPAY | END 2020-07-06 12:13 | disposition home or self-care (01) | LOC: ONCMED 12:12 | PROVIDERS: PCP Family Medicine; Visit Provider Internal Medicine Hematology & Oncology | DX: Z45.2 Encounter for adjustment and management of vascular access device (principal) | CPT/HCPCS: 96523 ==

== ENCOUNTER 2020-08-04 06:14 | Outpatient (CLI) | payer OTHER, SELFPAY | END 2020-08-04 06:15 | disposition home or self-care (01) | PROVIDERS: PCP Family Medicine; Visit Provider Internal Medicine Hematology & Oncology | DX: Z45.2 Encounter for adjustment and management of vascular access device (principal) | CPT/HCPCS: 96523 ==

== ENCOUNTER 2020-09-04 08:58 | Outpatient (CLI) | payer OTHER, SELFPAY ==
[2020-09-04 10:19] LABS: Basophils # 0.1 10^3/uL (0.0-0.1); Basophils % 1.6 %; Eosinophils # 0.2 10^3/uL (0.0-0.8); Eosinophils % 5.4 %; Hematocrit 43.2 % (42.0-52.0); Hemoglobin 13.6 g/dL (11.7-16.6); Lymphocytes # 0.7 10^3/uL (0.8-4.8); Lymphocytes % 15.2 %; Mean Corpuscular HGB Conc 31.5 g/dL (30.0-36.0); Mean Corpuscular Hemoglobin 30.4 pg (28.0-34.0); Mean Corpuscular Volume 96.6 fL (80-94); Monocytes # 0.5 10^3/uL (0.2-0.9); Monocytes % 11.8 %; Neutrophils % 65.8 %; Nucleated Red Blood Cells % 0 %; Platelet Count 142 10^3/cmm (130-400); Red Blood Count 4.47 10^6/uL (4.1-5.3); Red Cell Distribution Width 14.5 % (12.1-15.1); White Blood Count 4.4 10^3/uL (4.0-10.0)
[2020-09-04 10:50] LABS: Alanine Aminotransferase 31 U/L (0-41); Albumin Level 3.7 g/dL (3.5-5.2); Alkaline Phosphatase 128 IU/L (40-130); Anion Gap 13.7 (5-19); Aspartate Amino Transferase 25 U/L (0-40); Blood Urea Nitrogen 7 mg/dL (6-20); Calcium 8.9 mg/dL (8.5-10.5); Carbon Dioxide 25 mmol/L (22-29); Chloride 104 mmol/L (98-107); Globulin 3.3 g/dL (1.3-4.6); Glomerular Filtration Rate 118.9 mL/min (90-130); Glucose 106 mg/dL (65-115); Osmolality Calculated 286 mOsm/kg (285-295); Potassium 3.7 mmol/L (3.5-5.1); Sodium 139 mmol/L (136-145); Total Bilirubin 0.4 mg/dL (0.15-1.2)
--- NOTE | 2020-09-04 13:17 | ONC FU_ITS ---
Dr. Frias follow up note Patient: Guy Salinas Unit #: [id number]: 1970 Dicatated By: Jamie Frias M.D.Date of Visit:Sep 04, 2020 Onc Med Follow-up/Prog Note History of Present Illness: Mr. Salinas is a 50 -year-old gentleman with intermittent rectal bleeding for the last couple of years. In November 2019, he presented to [facility] with progressive weakness found to have hemoglobin around 6 g. He was given blood transfusion and with that he felt better. He then underwent CT scan of abdomen and pelvis on 12/13/2018 which showed circumferential rectal wall thickening with mild perirectal edema and small perirectal lymph nodes; Descending and sigmoid diverticulosis without acute diverticulitis. And also showed 2 mm nodules at the lung bases bilaterally, no liver involvement no pelvic lymphadenopathy. Mr Salinas underwent colonoscopy on 12/14/2018 which showed at 8 cm a circumferential mass. A biopsy was obtained and the final pathology report showed infiltrating adenocarcinoma, low-grade, moderately differentiated. CEA was 2.1 Mr Salinas is on oral iron supplement, tolerating well, overall feeling well, still has rectal bleeding but off-and-on. As per patient, Dr. Miller referred him to colorectal surgeon in [place], [place] for evaluation. Mr Salinas was evaluated by Dr. Rodríguez in [place] who recommended neoadjuvant chemotherapy. Neoadjuvant combined chemoradiation therapy with oral Xeloda started on 01/28 After completion combined chemoradiation, Mr Salinas underwent sigmoid colon/rectum resection on 04/30/2019 and final pathology report shows partial response, tumor size 2 x 2.05 cm extends through muscularis propria into perirectal adipose tissue, with a clear margin no lymphovascular invasion seen 4 out of 11 lymph nodes positive. Mr Salinas started on adjuvant chemotherapy with FOLFOX every 2 weeks ???12 on 07/03/2019. Due to significant neutropenia and significant [id number] expense for the fluorouracil pump,offered to change the fluorouracil portion to keep capecitabine at 1650 mg twice daily 14 days on and 7 days off. He states his co-pay for the capecitabine was 7 or $8. and received 1/2 capeox on 12/10/2019and second and final dose on 12/31/2019 frequent bowel movement because of rectal surgery for rectal CA and status post combined chemoradiation therapy. Also has neuropathy in lower pelvis/genital area since primary surgery for rectal cancer. Patient says sometimes he can feel numbness inside the inner thighs. But denies any trauma to his back or back pain denies any urinary incontinence but erectile dysfunction. As per patient he did discuss with Dr. martinez in the past but not recently. 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 Patient underwent ileostomy reversal on April 23, 2020 Came for follow-up, denies any specific complaint except Patient said since his ileostomy reversal he is having stool incontinence and has seen Dr. Martinez recently, follow-up colonoscopy is under consideration December 2020. Also complaining of numbness and lower extremity involving bilateral feet, has seen Dr. Herndon in the past and now considering neurological evaluation in [place] but denies any focal weakness in the lower extremity, peripheral numbness in the fingertips is improving, denies any melena or hematochezia denies any jaundice denies hemoptysis or hematemesis denies any abdominal pain Medications: Allopurinol 1 Tablet (of 300 mg) Oral daily, Lisinopril 1 (40 mg) Tablet Oral daily, LORazepam 1 Tablet (of 0.5 mg) Oral t.i.d. PRN, Omeprazole 1 Tablet (of 20 mg) Tablet, enteric coated Oral daily, Prochlorperazine Maleate 1 Tablet (of 10 mg) Oral q 4 hours PRN, Ritalin 1 Tablet (of 10 mg) Oral b.i.d., Tamsulosin HCl 1 Capsule (of 0.4 mg) Oral at bedtime PRN Allergies: Cefprozil and Naproxen. Review of Systems: Review of Systems is not available for this patient. Vital Signs: Performed on Sep 04, 2020 09:57 Height - 67.00 in Weight - 233.4 lbs (HIGH) BSA - 2.16 sq.m BMI - 36.56 (HIGH) Temperature - 98.3 F (LOW) Pulse - 74 /min Respiration - 18 /min BP - 154/93 mm(hg) (HIGH) O2 Sat - 98 % Pain - 0 Performance Status: 0 - Fully active, able to carry on all predisease activities without restrictions. (ECOG) Physical Examination: ENMT - No mouth sores, no thrush, no jaundice, Respiratory - Lungs are clear to auscultation, Cardiovascular - Regular rate and rhythm of heart, Abdomen - Soft, bowel sounds present, Extremities - No visible edema. Lab/Imaging: Test performed on May 04, 2020 12:00 Sodium 140 mmol/L Potassium 3.7 mmol/L Chloride 105 mmol/L CO2 28 mmol/L Anion Gap 10.7 BUN 7 mg/dL Creatinine 0.8 mg/dL Cr Clearance (Est) 153.6600 mL/min eGFR 102.3 mL/min Glucose 118 mg/dL Calcium 8.6 mg/dL Osmolality - Calculated 287 mOsm/kg Protein, Total 6.9 g/dL Albumin 3.6 g/dL Globulin 3.3 g/dL Bilirubin, Total 0.4 mg/dL ALT (SGPT) 27 U/L AST (SGOT) 22 U/L Alkaline Phosphatase 243 IU/L WBC 7.1 10 3/uL RBC 3.89 10 6/uL HGB 12.4 g/dL HCT 38.7 % MCV 99.5 fL MCH 31.9 pg MCHC 32.0 g/dL RDW 14.4 % Platelet Count 248 10 3/cmm MPV 9.3 fL Neutrophils 5.22 10 3/uL Lymphocytes 0.8 10 3/uL Monocytes 0.7 10 3/uL Eosinophils 0.4 10 3/uL Basophils 0.1 10 3/uL Neutrophil % 74.0 % Lymphocyte % 10.6 % Monocyte % 9.2 % Eosinophil % 5.0 % Basophils % 0.9 % NRBC % 0 % Impression: Infiltrating adenocarcinoma, low-grade, moderate differentiated per biopsy/colonoscopy done on 12/14/[address] scan of chest abdomen pelvis done on 12/13/2018 showed circumferential rectal wall thickening with mild perirectal edema and small perirectal lymph nodes, correlate for acute proctitis Descending and sigmoid diverticulosis without acute diverticulitis No intrahepatic lesion, no pelvic lymphadenopathy 2 mm nodules at the lung bases bilaterally. Iron deficiency anemia status post packed RBCs, now on oral iron now complaining of intolerance , Oral iron discontinued status post Injectafer 750 mg on February 01 and 2018 Esophageal stricture status post dilatation many years ago. s/p dalataion with that his dysphagia resolved and he was able to take Xeloda twice a day 5 days a week concurrent with radiation therapy, started on 01/28/19 After completion combined chemoradiation, Mr Salinas underwent sigmoid colon/rectum resection on 04/30/2019. Followup imaging showed partial response with the tumor size measuring 2 x 2.5 cm and it extends through muscularis propria into perirectal adipose tissue with clear margins, no lymphovascular invasion seen, 4 out of 11 lymph nodes were positive for metastatic disease Mr Salinas was offered adjuvant chemotherapy with FOLFOX ???12 on 07/03/2019. Mr. Salinas has now completed 9 cycles of FOLFOX. He has required growth factor support due to chemo induced neutropenia. With cycle 9 he did not receive the Neulasta for unknown reasons and his ANC nadired at 900. His last chemotherapy treatment was November 13, 2019. Mr. Salinas is here today for follow-up and consideration of chemotherapy. Due to significant neutropenia and significant [id number] expense for the fluorouracil pump, has offered to change the fluorouracil portion to keep capecitabine at 1650 mg twice daily 14 days on and 7 days off. patient received two doses of capeox and completed on 12/31/2019 Plan: Discussed with patient regarding his labs white blood count 4.4 hemoglobin 13.6 crit 43.2 platelets 142,000 CMP within normal limits Clinically, patient is doing reasonably well but concerned about his stool incontinence, now being followed by Dr. Martinez in [place] and also has persistent lower extremity neuropathy but with improving bilateral fingertip neuropathy. Patient has no signs symptom suggestive of recurrence of disease his follow-up lab work-up is also within normal range, Patient scheduled for follow-up colonoscopy in December 2020, will see him in 5 months with CBC CMP Signed By: Jamie Frias M.D. <<Signature on File>>
== END 2020-09-04 08:59 | disposition home or self-care (01) ==
LOC: ONCMED 08:59
PROVIDERS: PCP Family Medicine; Visit Provider Internal Medicine Hematology & Oncology
DX: Z08 Encounter for follow-up examination after completed treatment for malignant neoplasm (principal); Z85.048 Personal history of other malignant neoplasm of rectum, rectosigmoid junction, and anus; R15.9 Full incontinence of feces; G62.9 Polyneuropathy, unspecified; Z92.21 Personal history of antineoplastic chemotherapy; Z92.3 Personal history of irradiation
CPT/HCPCS: 36591; 80053; 85025; G0463

== ENCOUNTER 2020-10-02 10:03 | Outpatient (CLI) | payer OTHER, SELFPAY | END 2020-10-02 10:04 | disposition home or self-care (01) | LOC: ONCMED 10:05 | PROVIDERS: PCP Family Medicine; Visit Provider Internal Medicine Hematology & Oncology | DX: Z45.2 Encounter for adjustment and management of vascular access device (principal) | CPT/HCPCS: 96523 ==

== ENCOUNTER 2020-11-06 10:16 | Outpatient (CLI) | payer OTHER, SELFPAY ==
[2020-11-06] MEDS: alteplase 1 mg/mL SDV 2 mL 2 MG INTRACATH (10:44)
== END 2020-11-06 10:17 | disposition home or self-care (01) ==
LOC: ONCMED 10:19
PROVIDERS: PCP Family Medicine; Visit Provider Internal Medicine Hematology & Oncology
DX: Z45.2 Encounter for adjustment and management of vascular access device (principal); C20 Malignant neoplasm of rectum; T82.9XXA Unspecified complication of cardiac and vascular prosthetic device, implant and graft, initial encounter; Y82.8 Other medical devices associated with adverse incidents
CPT/HCPCS: 36593; 96374; J2997

== ENCOUNTER 2020-12-04 10:23 | Outpatient (CLI) | payer OTHER, SELFPAY | END 2020-12-04 10:24 | disposition home or self-care (01) | LOC: ONCMED 10:24 | PROVIDERS: PCP Family Medicine; Visit Provider Internal Medicine Hematology & Oncology | DX: Z45.2 Encounter for adjustment and management of vascular access device (principal) | CPT/HCPCS: 96523 ==

== ENCOUNTER 2021-01-01 10:21 | Outpatient (CLI) | payer OTHER, SELFPAY | END 2021-01-01 10:22 | disposition home or self-care (01) | LOC: ONCMED 10:23 | PROVIDERS: PCP Family Medicine; Visit Provider Internal Medicine Hematology & Oncology | DX: Z45.2 Encounter for adjustment and management of vascular access device (principal) | CPT/HCPCS: 96523 ==

== ENCOUNTER 2021-01-29 08:52 | Outpatient (CLI) | payer OTHER, SELFPAY ==
[2021-01-29 09:55] LABS: Basophils # 0.1 10^3/uL (0.0-0.1); Basophils % 1.5 %; Eosinophils # 0.4 10^3/uL (0.0-0.8); Eosinophils % 5.9 %; Hematocrit 44.3 % (42.0-52.0); Hemoglobin 14.7 g/dL (11.7-16.6); Mean Corpuscular HGB Conc 33.2 g/dL (30.0-36.0); Mean Corpuscular Hemoglobin 32.2 pg (28.0-34.0); Mean Corpuscular Volume 97.1 fL (80-94); Mean Platelet Volume 9.6 fL (7.4-10.4); Monocytes # 0.7 10^3/uL (0.2-0.9); Monocytes % 11.2 %; Neutrophils # 3.93 10^3/uL (1.8-7.7); Neutrophils % 64.9 %; Nucleated Red Blood Cells % 0 %; Platelet Count 196 10^3/cmm (130-400); Red Blood Count 4.56 10^6/uL (4.1-5.3); Red Cell Distribution Width 13.4 % (12.1-15.1); White Blood Count 6.1 10^3/uL (4.0-10.0)
[2021-01-29 10:14] LABS: Alanine Aminotransferase 36 U/L (0-41); Albumin Level 3.7 g/dL (3.5-5.2); Alkaline Phosphatase 132 IU/L (40-130); Aspartate Amino Transferase 32 U/L (0-40); Blood Urea Nitrogen 10 mg/dL (6-20); Calcium 9.1 mg/dL (8.5-10.5); Carbon Dioxide 27 mmol/L (22-29); Chloride 100 mmol/L (98-107); Globulin 2.9 g/dL (1.3-4.6); Glomerular Filtration Rate 101.9 mL/min (90-130); Glucose 130 mg/dL (65-115); Osmolality Calculated 281 mOsm/kg (285-295); Sodium 135 mmol/L (136-145); Total Bilirubin 0.4 mg/dL (0.15-1.2); Total Protein 6.6 g/dL (6.6-8.7)
--- NOTE | 2021-01-29 11:07 | ONC FU_ITS ---
Dr. Frias follow up note Patient: Guy Salinas Unit #: [id number]: 1970 Dicatated By: Jamie Frias M.D.Date of Visit:Jan 29, 2021 Onc Med Follow-up/Prog Note History of Present Illness: Mr. Salinas is a 50 -year-old gentleman with intermittent rectal bleeding for the last couple of years. In November 2019, he presented to [facility] with progressive weakness found to have hemoglobin around 6 g. He was given blood transfusion and with that he felt better. He then underwent CT scan of abdomen and pelvis on 12/13/2018 which showed circumferential rectal wall thickening with mild perirectal edema and small perirectal lymph nodes; Descending and sigmoid diverticulosis without acute diverticulitis. And also showed 2 mm nodules at the lung bases bilaterally, no liver involvement no pelvic lymphadenopathy. Mr Salinas underwent colonoscopy on 12/14/2018 which showed at 8 cm a circumferential mass. A biopsy was obtained and the final pathology report showed infiltrating adenocarcinoma, low-grade, moderately differentiated. CEA was 2.1 Mr Salinas is on oral iron supplement, tolerating well, overall feeling well, still has rectal bleeding but off-and-on. As per patient, Dr. Miller referred him to colorectal surgeon in [place], [place] for evaluation. Mr Salinas was evaluated by Dr. Rodríguez in [place] who recommended neoadjuvant chemotherapy. Neoadjuvant combined chemoradiation therapy with oral Xeloda started on 01/28 After completion combined chemoradiation, Mr Salinas underwent sigmoid colon/rectum resection on 04/30/2019 and final pathology report shows partial response, tumor size 2 x 2.05 cm extends through muscularis propria into perirectal adipose tissue, with a clear margin no lymphovascular invasion seen 4 out of 11 lymph nodes positive. Mr Salinas started on adjuvant chemotherapy with FOLFOX every 2 weeks ???12 on 07/03/2019. Due to significant neutropenia and significant [id number] expense for the fluorouracil pump,offered to change the fluorouracil portion to keep capecitabine at 1650 mg twice daily 14 days on and 7 days off. He states his co-pay for the capecitabine was 7 or $8. and received 1/2 capeox on 12/10/2019and second and final dose on 12/31/2019 frequent bowel movement because of rectal surgery for rectal CA and status post combined chemoradiation therapy. Also has neuropathy in lower pelvis/genital area since primary surgery for rectal cancer. Patient says sometimes he can feel numbness inside the inner thighs. But denies any trauma to his back or back pain denies any urinary incontinence but erectile dysfunction. As per patient he did discuss with Dr. martinez in the past but not recently. 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 Patient underwent ileostomy reversal on April 23, 2020 Underwent f/u flex sigmoidoscopy by Dr. Rodríguez on January 14, 2021 in [place] which showed there is a dense recurrence of stricture that despite digital dilation, the endoscope would not pass. So unable to visualize any significant amount of colon. And his impression was that, in near future, patient may need resection of this anastomosis and proceed with permanent colostomy Came for follow-up, denies any specific complaints, no fever chills, no nausea or vomiting, no diarrhea or constipation, no abdominal pain, no jaundice Medications: Allopurinol 1 Tablet (of 300 mg) Oral daily, Lisinopril 1 (40 mg) Tablet Oral daily, LORazepam 1 Tablet (of 0.5 mg) Oral t.i.d. PRN, Omeprazole 1 Tablet (of 20 mg) Tablet, enteric coated Oral daily, Prochlorperazine Maleate 1 Tablet (of 10 mg) Oral q 4 hours PRN, Ritalin 1 Tablet (of 10 mg) Oral b.i.d., Tamsulosin HCl 1 Capsule (of 0.4 mg) Oral at bedtime PRN Allergies: Cefprozil and Naproxen. Review of Systems: Review of Systems is not available for this patient. Vital Signs: Performed on Jan 29, 2021 10:36 Height - 67.00 in Weight - 251.2 lbs (HIGH) BSA - 2.23 sq.m BMI - 39.34 (HIGH) Temperature - 97.2 F (LOW) Pulse - 83 /min Respiration - 18 /min BP - 163/81 mm(hg) (HIGH) O2 Sat - 98 % Pain - 0 Performance Status: 0 - Fully active, able to carry on all predisease activities without restrictions. (ECOG) Physical Examination: ENMT - No mouth sores, no thrush, no jaundice, Respiratory - Lungs are clear to auscultation, Cardiovascular - Regular rate and rhythm of heart, Abdomen - Soft, bowel sounds present, Extremities - No visible edema. Lab/Imaging: Test performed on Sep 04, 2020 09:37 Sodium 139 mmol/L Potassium 3.7 mmol/L Chloride 104 mmol/L CO2 25 mmol/L Anion Gap 13.7 BUN 7 mg/dL Creatinine 0.7 mg/dL Cr Clearance (Est) 173.6600 mL/min eGFR 118.9 mL/min Glucose 106 mg/dL Osmolality - Calculated 286 mOsm/kg Calcium 8.9 mg/dL Protein, Total 7.0 g/dL Albumin 3.7 g/dL Globulin 3.3 g/dL Bilirubin, Total 0.4 mg/dL ALT (SGPT) 31 U/L AST (SGOT) 25 U/L Alkaline Phosphatase 128 IU/L WBC 4.4 10 3/uL RBC 4.47 10 6/uL HGB 13.6 g/dL HCT 43.2 % MCV 96.6 fL MCH 30.4 pg MCHC 31.5 g/dL RDW 14.5 % Platelet Count 142 10 3/cmm MPV 10.0 fL Neutrophils 2.90 10 3/uL Lymphocytes 0.7 10 3/uL Monocytes 0.5 10 3/uL Eosinophils 0.2 10 3/uL Basophils 0.1 10 3/uL Neutrophil % 65.8 % Lymphocyte % 15.2 % Monocyte % 11.8 % Eosinophil % 5.4 % Basophils % 1.6 % NRBC % 0 % Impression: Infiltrating adenocarcinoma, low-grade, moderate differentiated per biopsy/colonoscopy done on 12/14/[address] scan of chest abdomen pelvis done on 12/13/2018 showed circumferential rectal wall thickening with mild perirectal edema and small perirectal lymph nodes, correlate for acute proctitis Descending and sigmoid diverticulosis without acute diverticulitis No intrahepatic lesion, no pelvic lymphadenopathy 2 mm nodules at the lung bases bilaterally. Iron deficiency anemia status post packed RBCs, now on oral iron now complaining of intolerance , Oral iron discontinued status post Injectafer 750 mg on February 01 and 2018 Esophageal stricture status post dilatation many years ago. s/p dalataion with that his dysphagia resolved and he was able to take Xeloda twice a day 5 days a week concurrent with radiation therapy, started on 01/28/19 After completion combined chemoradiation, Mr Salinas underwent sigmoid colon/rectum resection on 04/30/2019. Followup imaging showed partial response with the tumor size measuring 2 x 2.5 cm and it extends through muscularis propria into perirectal adipose tissue with clear margins, no lymphovascular invasion seen, 4 out of 11 lymph nodes were positive for metastatic disease Mr Salinas was offered adjuvant chemotherapy with FOLFOX ???12 on 07/03/2019. Mr. Salinas has now completed 9 cycles of FOLFOX. He has required growth factor support due to chemo induced neutropenia. With cycle 9 he did not receive the Neulasta for unknown reasons and his ANC nadired at 900. His last chemotherapy treatment was November 13, 2019. Mr. Salinas is here today for follow-up and consideration of chemotherapy. Due to significant neutropenia and significant [id number] expense for the fluorouracil pump, has offered to change the fluorouracil portion to keep capecitabine at 1650 mg twice daily 14 days on and 7 days off. patient received two doses of capeox and completed on 12/31/2019 Plan: Discussed with patient regarding his labs white blood count 6.1 hemoglobin 14.7 hematocrit 44.3 platelets 196,000 CMP within normal limits And also discussed about his recently done flexible sigmoidoscopy report which showed recurrent dense stricture of colorectal anastomosis Clinically, patient doing well with no new signs symptoms history of recurrence of disease his follow-up lab work-up is within normal range and recently patient underwent flex sigmoidoscopy which showed dense recurrent anastomotic stricture of colorectal lesion which would not allow further colon Evaluation. As per patient Dr. Rodríguez, told him that he may need permanent colostomy and resection of this anastomotic stricture, patient is reluctant and may consider a second opinion before considering permanent colostomy. He will return to clinic in 6 months with CBC CMP and CEA Signed By: Jamie Frias M.D. <<Signature on File>>
== END 2021-01-29 08:53 | disposition home or self-care (01) ==
LOC: ONCMED 08:53
PROVIDERS: PCP Family Medicine; Visit Provider Internal Medicine Hematology & Oncology
DX: C20 Malignant neoplasm of rectum (principal); C78.01 Secondary malignant neoplasm of right lung; C78.02 Secondary malignant neoplasm of left lung; K62.89 Other specified diseases of anus and rectum; K57.90 Diverticulosis of intestine, part unspecified, without perforation or abscess without bleeding; K57.92 Diverticulitis of intestine, part unspecified, without perforation or abscess without bleeding; D50.9 Iron deficiency anemia, unspecified; R13.10 Dysphagia, unspecified; Z92.3 Personal history of irradiation; Z92.21 Personal history of antineoplastic chemotherapy; Z79.899 Other long term (current) drug therapy
CPT/HCPCS: 36415; 80053; 85025; 96523; 99214

== ENCOUNTER 2021-08-27 08:48 | Outpatient (CLI) | payer MEDICAID, SELFPAY ==
[2021-08-27 09:29] LABS: Basophils % 0.6 %; Eosinophils % 0.8 %; Hematocrit 46.3 % (42.0-52.0); Hemoglobin 15.5 g/dL (11.7-16.6); Lymphocytes # 0.6 10^3/uL (0.8-4.8); Lymphocytes % 16.6 %; Mean Corpuscular HGB Conc 33.5 g/dL (30.0-36.0); Mean Corpuscular Hemoglobin 32.5 pg (28.0-34.0); Mean Corpuscular Volume 97.1 fl (80-94); Mean Platelet Volume 9.3 fL (7.4-10.4); Monocytes # 0.4 10^3/uL (0.2-0.9); Monocytes % 10.2 %; Neutrophils # 2.59 10^3/uL (1.8-7.7); Neutrophils % 71.5 %; Nucleated Red Blood Cells % 0 %; Platelet Count 166 10^3/cmm (130-400); Red Blood Count 4.77 10^6/uL (4.1-5.3); Red Cell Distribution Width 13.4 % (12.1-15.1); White Blood Count 3.6 10^3/uL (4.0-10.0)
[2021-08-27 09:55] LABS: Carcinoembryonic Antigen 1.5 ng/mL (0.0-4.7)
[2021-08-27 10:06] LABS: Alanine Aminotransferase 24 U/L (0-41); Albumin Level 3.7 g/dL (3.5-5.2); Alkaline Phosphatase 106 IU/L (40-130); Anion Gap 15.3 (5-19); Aspartate Amino Transferase 21 U/L (0-40); Blood Urea Nitrogen 7 mg/dL (6-20); Carbon Dioxide 24 mmol/L (22-29); Chloride 93 mmol/L (98-107); Globulin 3.6 g/dL (1.3-4.6); Glomerular Filtration Rate 118.9 mL/min (90-130); Glucose 156 mg/dL (65-115); Osmolality Calculated 269 mOsm/kg (285-295); Potassium 3.3 mmol/L (3.5-5.1); Sodium 129 mmol/L (136-145); Total Bilirubin 0.6 mg/dL (0.15-1.2); Total Protein 7.3 g/dL (6.6-8.7)
--- NOTE | 2021-08-27 12:31 | ONC FU_ITS ---
Dr. Frias follow up note Patient: Guy Salinas Unit #: [id number]: 1970 Dicatated By: Jamie Frias M.D.Date of Visit:Aug 27, 2021 Onc Med Follow-up/Prog Note History of Present Illness: Mr. Salinas is a 50 -year-old gentleman with intermittent rectal bleeding for the last couple of years. In November 2019, he presented to [facility] with progressive weakness found to have hemoglobin around 6 g. He was given blood transfusion and with that he felt better. He then underwent CT scan of abdomen and pelvis on 12/13/2018 which showed circumferential rectal wall thickening with mild perirectal edema and small perirectal lymph nodes; Descending and sigmoid diverticulosis without acute diverticulitis. And also showed 2 mm nodules at the lung bases bilaterally, no liver involvement no pelvic lymphadenopathy. Mr Salinas underwent colonoscopy on 12/14/2018 which showed at 8 cm a circumferential mass. A biopsy was obtained and the final pathology report showed infiltrating adenocarcinoma, low-grade, moderately differentiated. CEA was 2.1 Mr Salinas is on oral iron supplement, tolerating well, overall feeling well, still has rectal bleeding but off-and-on. As per patient, Dr. Miller referred him to colorectal surgeon in [place], [place] for evaluation. Mr Salinas was evaluated by Dr. Rodríguez in [place] who recommended neoadjuvant chemotherapy. Neoadjuvant combined chemoradiation therapy with oral Xeloda started on 01/28 After completion combined chemoradiation, Mr Salinas underwent sigmoid colon/rectum resection on 04/30/2019 and final pathology report shows partial response, tumor size 2 x 2.05 cm extends through muscularis propria into perirectal adipose tissue, with a clear margin no lymphovascular invasion seen 4 out of 11 lymph nodes positive. Mr Salinas started on adjuvant chemotherapy with FOLFOX every 2 weeks ???12 on 07/03/2019. Due to significant neutropenia and significant [id number] expense for the fluorouracil pump,offered to change the fluorouracil portion to keep capecitabine at 1650 mg twice daily 14 days on and 7 days off. He states his co-pay for the capecitabine was 7 or $8. and received 1/2 capeox on 12/10/2019and second and final dose on 12/31/2019 frequent bowel movement because of rectal surgery for rectal CA and status post combined chemoradiation therapy. Also has neuropathy in lower pelvis/genital area since primary surgery for rectal cancer. Patient says sometimes he can feel numbness inside the inner thighs. But denies any trauma to his back or back pain denies any urinary incontinence but erectile dysfunction. As per patient he did discuss with Dr. martinez in the past but not recently. 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 Patient underwent ileostomy reversal on April 23, 2020 Underwent f/u flex sigmoidoscopy by Dr. Rodríguez on January 14, 2021 in [place] which showed there is a dense recurrence of stricture that despite digital dilation, the endoscope would not pass. So unable to visualize any significant amount of colon. And his impression was that, in near future, patient may need resection of this anastomosis and proceed with permanent colostomy Came for follow-up, denies any specific complaint except persistent stool urgency and liquid stools patient said since he lost his insurance he did not go back to [place] for evaluation. And now also complaining of right chest/breast subareolar fullness but no nipple discharge, no overlying skin changes no nipple retraction no history of trauma to the chest wall or right breast. Denies any melena or hematochezia denies any hemoptysis or hematemesis denies any jaundice denies any abdominal pain Medications: There is no information available for Current Medications - Patient. Allergies: Cefprozil and Naproxen. Review of Systems: Review of Systems is not available for this patient. Vital Signs: Performed on Aug 27, 2021 11:05 Height - 67.00 in Weight - 253.4 lbs (HIGH) BSA - 2.24 sq.m BMI - 39.69 (HIGH) Temperature - 97.9 F (LOW) Pulse - 94 /min Respiration - 18 /min BP - 133/85 mm(hg) O2 Sat - 97 % Pain - 0 Fatigue - 5 Performance Status: 0 - Fully active, able to carry on all predisease activities without restrictions. (ECOG) Physical Examination: ENMT - No mouth sores, no thrush, no jaundice, Respiratory - Lungs are clear to auscultation , Chest wall/right breast shows no nipple discharge or retraction, no overlying skin changes there is a fullness in the subcarinal area, nontender, Cardiovascular - Regular rate and rhythm of heart, Abdomen - Soft, bowel sounds present, Extremities - No visible edema. Lab/Imaging: Most recent lab results are not available for this patient. Impression: Infiltrating adenocarcinoma, low-grade, moderate differentiated per biopsy/colonoscopy done on 12/14/[address] scan of chest abdomen pelvis done on 12/13/2018 showed circumferential rectal wall thickening with mild perirectal edema and small perirectal lymph nodes, correlate for acute proctitis Descending and sigmoid diverticulosis without acute diverticulitis No intrahepatic lesion, no pelvic lymphadenopathy 2 mm nodules at the lung bases bilaterally. Iron deficiency anemia status post packed RBCs, now on oral iron now complaining of intolerance , Oral iron discontinued status post Injectafer 750 mg on February 01 and 2018 Esophageal stricture status post dilatation many years ago. s/p dalataion with that his dysphagia resolved and he was able to take Xeloda twice a day 5 days a week concurrent with radiation therapy, started on 01/28/19 After completion combined chemoradiation, Mr Salinas underwent sigmoid colon/rectum resection on 04/30/2019. Followup imaging showed partial response with the tumor size measuring 2 x 2.5 cm and it extends through muscularis propria into perirectal adipose tissue with clear margins, no lymphovascular invasion seen, 4 out of 11 lymph nodes were positive for metastatic disease Mr Salinas was offered adjuvant chemotherapy with FOLFOX ???12 on 07/03/2019. Mr. Salinas has now completed 9 cycles of FOLFOX. He has required growth factor support due to chemo induced neutropenia. With cycle 9 he did not receive the Neulasta for unknown reasons and his ANC nadired at 900. His last chemotherapy treatment was November 13, 2019. Mr. Salinas is here today for follow-up and consideration of chemotherapy. Due to significant neutropenia and significant [id number] expense for the fluorouracil pump, has offered to change the fluorouracil portion to keep capecitabine at 1650 mg twice daily 14 days on and 7 days off. patient received two doses of capeox and completed on 12/31/2019 Plan: Discussed with patient regarding his labs white blood count 3.6 hemoglobin 15.5 hematocrit 46.3 platelets 166,000 ANC 2590 CMP sodium 129 potassium 3.3 glucose 156 rest within normal range CEA 1.5 Clinically, patient is done reasonably well with no new signs symptom suggestive of recurrence of disease but persistent diarrhea, etiology unclear could be overflow as patient has history of sigmoid colon stricture or could be proctitis. At this point, will refer him to Dr. Miller for right breast subareolar mass evaluation as well as history of sigmoid colon stricture as patient does not want to go back to [place]. As per as mild hypokalemia is concerned, probably due to persistent diarrhea will consider potassium supplement, KCl 20 mEq p.o. twice daily for 3 days then as needed and also check his magnesium level and repeat BMP in a week Mild hyponatremia could be due to free water intake patient was advised to be mindful about free water intake, will monitor. Return to clinic in 4 months with CBC CMP and CEA unless right breast evaluation shows abnormality Signed By: Jamie Frias M.D. <<Signature on File>>
== END 2021-08-27 08:49 | disposition home or self-care (01) ==
PROVIDERS: PCP Family Medicine; Visit Provider Internal Medicine Hematology & Oncology
DX: Z08 Encounter for follow-up examination after completed treatment for malignant neoplasm (principal); Z85.038 Personal history of other malignant neoplasm of large intestine; K57.30 Diverticulosis of large intestine without perforation or abscess without bleeding; R91.1 Solitary pulmonary nodule; D50.9 Iron deficiency anemia, unspecified; Z79.899 Other long term (current) drug therapy; Z92.21 Personal history of antineoplastic chemotherapy; Z92.3 Personal history of irradiation
CPT/HCPCS: 36415; 80053; 82378; 85025; 99214

== ENCOUNTER 2021-09-20 12:57 | Outpatient (CLI) | payer MEDICAID, SELFPAY ==
--- NOTE | 2021-09-20 13:11 | MM_ITS ---
WS: [id number] DIAGNOSTIC BILATERAL DIGITAL MAMMOGRAM WITH CAD Bilateral breast ultrasound, limited. HISTORY: RIGHT SUBAREOLAR FULLNESS COMPARISON: None available. TECHNIQUE: Bilateral craniocaudad, mediolateral oblique, and mediolateral views are submitted. Spot c ompression RIGHT and LEFT CC. Computer aided detection utilized. Breast composition: The breasts are almost entirely fatty. Minimal increased soft tissue in the RIGHT subareolar location. Not typical for gynecomastia. No suspicious findings. Ultrasound to follow. Bilateral breast ultrasound, limited. RIGHT breast: Very minimal increased soft tissue posterior to the RIGHT nipple may indicate very palmira y gynecomastia. Soft tissue nodule with mild increased vascularity measures 6 x 6 mm. LEFT breast: No abnormality. MM/[place] [id number] IMPRESSION: BI-RADS: 2-Benign FOLLOW UP: See Report Very mild gynecomastia RIGHT subareolar region.
== END 2021-09-20 12:58 | disposition home or self-care (01) ==
LOC: RADSHAW 13:01
PROVIDERS: PCP Family Medicine; Visit Provider Internal Medicine Hematology & Oncology
DX: N63.10 Unspecified lump in the right breast, unspecified quadrant (principal); N62 Hypertrophy of breast
CPT/HCPCS: 76642; 77066

== ENCOUNTER 2022-01-11 11:50 | Outpatient (CLI) | payer MEDICAID, SELFPAY ==
[2022-01-11 12:41] LABS: Basophils # 0.1 10^3/uL (0.0-0.1); Basophils % 1.7 %; Eosinophils # 0.2 10^3/uL (0.0-0.8); Eosinophils % 3.1 %; Hematocrit 49.3 % (42.0-52.0); Hemoglobin 15.8 g/dL (11.7-16.6); Lymphocytes # 0.9 10^3/uL (0.8-4.8); Lymphocytes % 15.2 %; Mean Corpuscular Hemoglobin 32.4 pg (28.0-34.0); Mean Platelet Volume 9.7 fL (7.4-10.4); Monocytes # 0.5 10^3/uL (0.2-0.9); Monocytes % 8.3 %; Neutrophils # 4.12 10^3/uL (1.8-7.7); Neutrophils % 71.4 %; Nucleated Red Blood Cells % 0 %; Platelet Count 266 10^3/cmm (130-400); Red Blood Count 4.88 10^6/uL (4.1-5.3); Red Cell Distribution Width 13.3 % (12.1-15.1); White Blood Count 5.8 10^3/uL (4.0-10.0)
[2022-01-11 13:00] LABS: Slide Review Slide Review Perform
[2022-01-11 13:10] LABS: Carcinoembryonic Antigen 1.3 ng/mL (0.0-4.7)
[2022-01-11 13:24] LABS: Alanine Aminotransferase 24 U/L (0-41); Albumin Level 4.1 g/dL (3.5-5.2); Alkaline Phosphatase 121 IU/L (40-130); Aspartate Amino Transferase 19 U/L (0-40); Blood Urea Nitrogen 6 mg/dL (6-20); Calcium 9.4 mg/dL (8.5-10.5); Carbon Dioxide 23 mmol/L (22-29); Chloride 100 mmol/L (98-107); Globulin 3.2 g/dL (1.3-4.6); Glomerular Filtration Rate 88.6 mL/min (90-130); Glucose 125 mg/dL (65-115); Osmolality Calculated 279 mOsm/kg (285-295); Sodium 135 mmol/L (136-145); Total Bilirubin 0.5 mg/dL (0.15-1.2); Total Protein 7.3 g/dL (6.6-8.7)
[2022-01-11 13:25] LABS: Anion Gap 15.8 (5-19); Potassium 3.8 mmol/L (3.5-5.1)
--- NOTE | 2022-01-17 08:32 | ONC FU_ITS ---
Dr. Frias follow up note Patient: Guy Salinas Unit #: [id number]: 1970 Dicatated By: Jamie Frias M.D.Date of Visit:Jan 11, 2022 Onc Med Follow-up/Prog Note History of Present Illness: Mr. Salinas is a 51 -year-old gentleman with intermittent rectal bleeding for the last couple of years. In November 2019, he presented to [facility] with progressive weakness found to have hemoglobin around 6 g. He was given blood transfusion and with that he felt better. He then underwent CT scan of abdomen and pelvis on 12/13/2018 which showed circumferential rectal wall thickening with mild perirectal edema and small perirectal lymph nodes; Descending and sigmoid diverticulosis without acute diverticulitis. And also showed 2 mm nodules at the lung bases bilaterally, no liver involvement no pelvic lymphadenopathy. Mr Salinas underwent colonoscopy on 12/14/2018 which showed at 8 cm a circumferential mass. A biopsy was obtained and the final pathology report showed infiltrating adenocarcinoma, low-grade, moderately differentiated. CEA was 2.1 Mr Salinas is on oral iron supplement, tolerating well, overall feeling well, still has rectal bleeding but off-and-on. As per patient, Dr. Miller referred him to colorectal surgeon in [place], [place] for evaluation. Mr Salinas was evaluated by Dr. Rodríguez in [place] who recommended neoadjuvant chemotherapy. Neoadjuvant combined chemoradiation therapy with oral Xeloda started on 01/28 After completion combined chemoradiation, Mr Salinas underwent sigmoid colon/rectum resection on 04/30/2019 and final pathology report shows partial response, tumor size 2 x 2.05 cm extends through muscularis propria into perirectal adipose tissue, with a clear margin no lymphovascular invasion seen 4 out of 11 lymph nodes positive. Mr Salinas started on adjuvant chemotherapy with FOLFOX every 2 weeks ???12 on 07/03/2019. Due to significant neutropenia and significant keh-qh-xmpevh expense for the fluorouracil pump,offered to change the fluorouracil portion to keep capecitabine at 1650 mg twice daily 14 days on and 7 days off. He states his co-pay for the capecitabine was 7 or $8. and received 1/2 capeox on 12/10/2019and second and final dose on 12/31/2019 frequent bowel movement because of rectal surgery for rectal CA and status post combined chemoradiation therapy. Also has neuropathy in lower pelvis/genital area since primary surgery for rectal cancer. Patient says sometimes he can feel numbness inside the inner thighs. But denies any trauma to his back or back pain denies any urinary incontinence but erectile dysfunction. As per patient he did discuss with Dr. martinez in the past but not recently. 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 Patient underwent ileostomy reversal on April 23, 2020 Underwent f/u flex sigmoidoscopy by Dr. Rodríguez on January 14, 2021 in [place] which showed there is a dense recurrence of stricture that despite digital dilation, the endoscope would not pass. So unable to visualize any significant amount of colon. evaluated by Dr. Miller for right breast subareolar mass and patient underwent bilateral digital mammographic evaluation on September 20, 2021 which shows very mild gynecomastia right subareolar region, otherwise BI-RADS 2, benign Came for follow-up, denies any specific complaint except persistent but mild diarrhea and stool incontinence, patient could not see his colorectal surgeon in [place] because of no insurance status. Recently evaluated by Dr. Miller for right breast subareolar mass and patient underwent bilateral digital mammographic evaluation on September 20, 2021 which shows very mild gynecomastia right subareolar region, otherwise BI-RADS 2, benign Medications: There is no information available for Current Medications - Patient. Allergies: Cefprozil and Naproxen. Review of Systems: Review of Systems is not available for this patient. Vital Signs: Performed on Jan 11, 2022 14:14 Height - 67.00 in Weight - 263.2 lbs (HIGH) BSA - 2.27 sq.m BMI - 41.22 (HIGH) Temperature - 97.8 F (LOW) Pulse - 78 /min Respiration - 19 /min BP - 157/84 mm(hg) (HIGH) O2 Sat - 97 % Pain - 0 Fatigue - 0 Performance Status: 0 - Fully active, able to carry on all predisease activities without restrictions. (ECOG) Physical Examination: ENMT - No mouth sores, no thrush, no jaundice, Respiratory - Lungs are clear to auscultation, Cardiovascular - Regular rate and rhythm of heart, Abdomen - Soft, bowel sounds present, Extremities - No visible edema. Lab/Imaging: Most recent lab results are not available for this patient. Impression: Infiltrating adenocarcinoma, low-grade, moderate differentiated per biopsy/colonoscopy done on 12/14/[address] scan of chest abdomen pelvis done on 12/13/2018 showed circumferential rectal wall thickening with mild perirectal edema and small perirectal lymph nodes, correlate for acute proctitis Descending and sigmoid diverticulosis without acute diverticulitis No intrahepatic lesion, no pelvic lymphadenopathy 2 mm nodules at the lung bases bilaterally. Iron deficiency anemia status post packed RBCs, now on oral iron now complaining of intolerance , Oral iron discontinued status post Injectafer 750 mg on February 01 and 2018 Esophageal stricture status post dilatation many years ago. s/p dalataion with that his dysphagia resolved and he was able to take Xeloda twice a day 5 days a week concurrent with radiation therapy, started on 01/28/19 After completion combined chemoradiation, Mr Salinas underwent sigmoid colon/rectum resection on 04/30/2019. Followup imaging showed partial response with the tumor size measuring 2 x 2.5 cm and it extends through muscularis propria into perirectal adipose tissue with clear margins, no lymphovascular invasion seen, 4 out of 11 lymph nodes were positive for metastatic disease Mr Salinas was offered adjuvant chemotherapy with FOLFOX ???12 on 07/03/2019. Mr. Salinas has now completed 9 cycles of FOLFOX. He has required growth factor support due to chemo induced neutropenia. With cycle 9 he did not receive the Neulasta for unknown reasons and his ANC nadired at 900. His last chemotherapy treatment was November 13, 2019. Mr. Salinas is here today for follow-up and consideration of chemotherapy. Due to significant neutropenia and significant chz-be-dajkpc expense for the fluorouracil pump, has offered to change the fluorouracil portion to keep capecitabine at 1650 mg twice daily 14 days on and 7 days off. patient received two doses of capeox and completed on 12/31/2019 Plan: Discussed with patient regarding his labs white blood count 5.8 hemoglobin 15.8 hematocrit 49.3 platelets 266,000 CMP within normal limits, CEA 1.3 Clinically, patient doing well with no new signs symptom suggestive of recurrence of disease, his tumor marker CEA is within normal range as well as remaining lab work including CBC and CMP. Patient was recently evaluated by Dr. Miller for right subareolar fullness and patient underwent digital mammography in September 2021 which confirmed BI-RADS 2, benign finding including mild gynecomastia right breast and Dr. Miller's recommendation was no surgical intervention at this point. , Will continue to monitor and he will return to clinic in 8 months with CBC CMP and CEA Signed By: Jamie Frias M.D. <<Signature on File>>
== END 2022-01-11 11:51 | disposition home or self-care (01) ==
PROVIDERS: PCP Family Medicine; Visit Provider Internal Medicine Hematology & Oncology
DX: C18.7 Malignant neoplasm of sigmoid colon (principal); C78.5 Secondary malignant neoplasm of large intestine and rectum; C77.8 Secondary and unspecified malignant neoplasm of lymph nodes of multiple regions; K57.30 Diverticulosis of large intestine without perforation or abscess without bleeding; R91.1 Solitary pulmonary nodule; D50.9 Iron deficiency anemia, unspecified; Z92.21 Personal history of antineoplastic chemotherapy; Z92.3 Personal history of irradiation; Z79.899 Other long term (current) drug therapy
CPT/HCPCS: 36415; 80053; 82378; 85025; 99214

== ENCOUNTER → 2022-05-10 12:34 | Outpatient (BNVA) | payer MEDICAID, SELFPAY | PROVIDERS: PCP Family Medicine; Visit Provider Surgery | DX: Z95.828 Presence of other vascular implants and grafts (principal) | CPT/HCPCS: 99204 ==

== ENCOUNTER 2022-05-12 05:58 | Day surgery (SDC) | payer MEDICAID, SELFPAY ==
[2022-05-11 13:31] VITALS: BMI 40.4
[2022-05-12] VITALS (7 sets, daily range): BP systolic 163–191; BP diastolic 96–105; PULSE 71–88; RESP 15–18; TEMP 36.4–37.6; O2SAT 94–100
--- NOTE | 2022-05-12 06:53 | P.HP_ITS ---
Same Day Surgery H&P Indication for Procedure/HPI DATE OF PROCEDURE: May 12, 2022 CHIEF COMPLAINT/INDICATIONFOR SURGICAL PROCEDURE: Removal of PowerPort PREOP DIAGNOSIS: port removal PLANNED PROCEDURE: Operation Date: 05/12/22 07:00 Proposed Procedures p removal of part a nara [id number](Not Applicable) - Kwame Miller MD Medications/Allergies* Home Medications Medication Instructions Recorded Confirmed Type pregabalin 100 mg capsule (Lyrica) 100 mg PO BID 05/10/22 05/12/22 History Allergies/Adverse Reactions Allergy/AdvReac Type Severity Reaction Status Date / Time No Known Allergies Allergy Unverified 05/10/22 12:55 Pertinent History/Comorbid Conditions* Medical History (Updated 09/07/21 @ 08:29 by Kwame Miller MD) Neuropathy Rectal cancer Status post chemoradiation Surgical History (Updated 05/10/22 @ 15:36 by Kwame Miller MD) History of colonoscopy History of low anterior resection of rectum History of reversal of ileostomy Port-A-Cath in place Social History Smoking and tobacco status: current every day smoker Pertinent Exam Findings alert, oriented x 3 and regular rate & rhythm Recommendations Surgery/Procedure today Coding Level of Care Code Acute Production Designer for Nida Moran
[2022-05-12] MEDS: lidocaine 2% INJ 20 mL INJECTION (07:09)
--- NOTE | 2022-05-12 07:27 | PM.OP ---
Operative Report Date of procedure: May 12, 2022 Pre-op diagnosis: Status post chemoradiation for rectal cancer Nonfunctioning Port-A-Cath Post-op diagnosis: same Procedure done: Removal of PowerPort from the left subclavian vein Pathology: none sent Surgeon: Kwame Miller Anesthesia: Local Condition: stable Disposition: PACU Procedure: Patient was taken to the operating room and his left chest was prepped and draped in a sterile manner. 20 mL of 1% lidocaine with 0.5% Marcaine was infiltrated around the MediPort and catheter in the left subclavian vein. Using a 15 blade the previous incision was opened, the subcutaneous tissue was divided using electrocautery and MediPort along the catheter was dissected free from the surrounding subcutaneous tissue and removed entirely. The wound was irrigated with saline, hemostasis ensured with electrocautery and subcutaneous tissue was approximated using 3-0 Vicryl suture and skin was closed using running subcuticular 4-0 Monocryl suture. The patient was transferred to the recovery room in stable condition.
== END 2022-05-12 07:30 | disposition home or self-care (01) ==
PROVIDERS: PCP Family Medicine; Visit Provider Surgery
PROC: (CPT 36589; principal; 2022-05-12 07:00)
DX: Z45.2 Encounter for adjustment and management of vascular access device (principal); Z85.048 Personal history of other malignant neoplasm of rectum, rectosigmoid junction, and anus; F17.200 Nicotine dependence, unspecified, uncomplicated
CPT/HCPCS: 36590

== ENCOUNTER → 2022-07-05 07:55 | Outpatient (BNVA) | payer MEDICAID, SELFPAY | PROVIDERS: PCP Family Medicine; Visit Provider Family Medicine | DX: C20 Malignant neoplasm of rectum (principal); I10 Essential (primary) hypertension; G62.9 Polyneuropathy, unspecified | CPT/HCPCS: 80053; 85025 ==

== ENCOUNTER 2024-10-14 17:23 | Observation (INO) | payer MEDICARE, SELFPAY ==
[2024-10-14] VITALS (7 sets, daily range): BP systolic 129–205; BP diastolic 73–110; PULSE 76–90; RESP 17–18; TEMP 36.3–37; O2SAT 94–97; BMI 42.5
--- NOTE | 2024-10-14 18:57 | ED_ITS ---
HPI - Skin/Abscess/Foreign Bdy General: Chief complaint: Skin/Abscess/Foreign Body Stated complaint: food lodge Time Seen by Provider: 10/14/24 18:42 History of Present Illness: Patient presents to the ER with reported piece of bread and/or sausage stuck in his throat down by the esophageal sphincter. Patient states had this at least 2 times before and had to be dilated both times. Patient appears in no acute distress and able to control secretions at this time patient says he tried drinking 4 ounce glass of water when he got back to the room and threw it up. Patient says had glucagon in the past that did not work. He said the only thing that works is endoscopy. Related Data Previous Rx's Medication Instructions Recorded pregabalin 100 mg capsule (Lyrica) 100 mg PO TID neuropathy #90 caps 06/02/22 metoprolol tartrate 50 mg tablet 50 mg PO BID for bp #180 tabs 11/10/22 escitalopram oxalate 10 mg tablet 10 mg PO DAILY #90 tabs 01/19/23 losartan 100 mg tablet 100 mg PO DAILY #90 tabs 07/06/23 Allergies Allergy/AdvReac Type Severity Reaction Status Date / Time No Known Allergies Allergy Verified 10/14/24 17:31 Review of Systems General: Reports: 10 or more systems reviewed and unremarkable except in HPI and below PFSH ED PFSH: Medical History Neuropathy Status post chemoradiation Rectal cancer Surgical History Port-A-Cath in place Removed 05/12/2022 History of reversal of ileostomy History of low anterior resection of rectum History of colonoscopy Social History Smoking and tobacco/nicotine status: current every day tobacco/nicotine user Physical Exam Const: COMMON NORMALS: no acute distress, average body habitus, patient oriented x3, no limitations, healthy appearing, alert and well nourished HENMT: COMMON NORMALS: normocephalic, atraumatic, hearing grossly normal bilaterally, external ears normal, Normal external nose present and moist oral mucous membranes HEAD & SCALP: normocephalic and atraumatic NOSE: Normal external nose present EXTERNAL EAR: Yes external ears normal Neck/C-Spine: COMMON NORMALS: full ROM, no lymphadenopathy, supple, no meningeal signs, no JVD and Thyroid normal THYROID: Thyroid normal Chest: COMMONS NORMALS: normal inspection of the chest and normal palpation of entire chest wall Resp: COMMON NORMALS: normal respiratory effort, No retractions, No use of accessory muscles and clear to auscultation bilaterally AUSCULTATION: clear to auscultation bilaterally Cardio: COMMON NORMALS: no JVD, regular rate, regular rhythm, S1 normal heart sound present, S2 normal heart sound present, No gallops present (Cardio), No clicks present (Cardio), No murmurs present (Cardio) and No rub (Cardio) RATE: regular rate RHYTHM: regular rhythm HEART SOUNDS: S1 normal heart sound present and S2 normal heart sound present GI: COMMON NORMALS: Normal to inspection, nondistended, normoactive bowel sounds present, Soft to palpation, non-tender, No hepatosplenomegaly present and no masses PALPATION: Yes Soft to palpation and Yes No hepatosplenomegaly present Neuro: COMMON NORMALS: patient oriented x3 SENSORIUM/ORIENTATION: Yes alert MENINGEAL SIGNS: Yes no meningeal signs Course Vital Signs: Vital signs: Vital Signs Temperature 98.6 F 10/14/24 17:27 Pulse Rate 79 10/14/24 18:58 Respiratory Rate 18 10/14/24 17:27 Blood Pressure 205/110 10/14/24 18:58 Pulse Oximetry 96 10/14/24 18:58 Oxygen Delivery Me thod Room Air 10/14/24 17:27 MDM - Skin/Abscess/Foreign Bdy Medicial Decision Making Patient was given 1 mg of Ativan, 1 mg glucagon, waited approximately 10 minutes with no results, patient then tried to choke 4 ounces of water which he was unable to do because it came right back up immediately. These results was disc ussed with Dr. Mares who says admit him to him keep him n.p.o. and he will take care of it. Medical Records I reviewed the patient's medical records. Lab Data I reviewed the patient's lab results. Laboratory Results POC Glucose 97 mg/dL (70-110) 10/14/24 19:15 No radiology studies performed this visit Discharge Plan Discharge Patient Disposition: Placed in Observation Clinical Impression: Obstruction of esophagus due to food impaction Coding Level of Care Code ED Signal Operator Linguist for Nida Moran
[2024-10-14] MEDS: glucagon 1 mg/mL KIT 1 mL IVP (19:17)
[2024-10-14] MEDS: LORazepam 2 mg/mL INJ 1 mL 1 MG IVP (19:18)
[2024-10-14 19:23] LABS: Glucose Point of Care 97 mg/dL (70-110)
[2024-10-15] VITALS (8 sets, daily range): BP systolic 155–183; BP diastolic 80–93; PULSE 69–88; RESP 16–18; TEMP 36.1–37; O2SAT 94–97
--- NOTE | 2024-10-15 06:59 | PM.HP ---
Providers/Chief Complaint Admitting Physician: Pacheco Mares DO Primary Care Provider: Quinton Verduzco DO Chief Complaint: food lodge History of Present Illness Guy Salinas is a 54 year old male who presented to the hospital with a several hour history of esophageal food bolus. He has a history of multiple esophageal food boluses that required clearance and subsequent dilation. He is unable to swallow any liquids. He failed glucagon in the ER. He denies any abdominal pain, diarrhea, constipation, hematochezia and/or melena. Review of Systems General: Reports: 10 or more systems reviewed and unremarkable except in HPI and below Medications/Allergies Home Medications Medication Instructions Recorded Confirmed Last Taken Type pregabalin 100 mg capsule (Lyrica) 100 mg PO TID neuropathy #90 caps 06/02/22 12/21/22 Unknown Rx metoprolol tartrate 50 mg tablet 50 mg PO BID for bp #180 tabs 11/10/22 12/21/22 Unknown Rx escitalopram oxalate 10 mg tablet 10 mg PO DAILY #90 tabs 01/19/23 Unknown Rx losartan 100 mg tablet 100 mg PO DAILY #90 tabs 07/06/23 Unknown Rx Allergies Allergy/AdvReac Type Severity Reaction Status Date / Time No Known Allergies Allergy Verified 10/14/24 17:31 PFSH Acute PFSH: Medical History Neuropathy Status post chemoradiation Rectal cancer Surgical History Port-A-Cath in place Removed 05/12/2022 History of reversal of ileostomy History of low anterior resection of rectum History of colonoscopy Social History Smoking and tobacco/nicotine status: current every day tobacco/nicotine user Vitals/I&O/Wt Last Vital Signs Temp 98.6 F 10/15/24 04:00 Pulse 81 10/15/24 04:00 Resp 16 10/15/24 04:00 BP 157/83 10/15/24 04:00 Pulse Ox 94 10/15/24 04:00 O2 Del Method Room Air 10/15/24 04:00 Weight last 48 hrs Weight 280 lb Weight 280 lb Weight 280 lb Physical Exam Narrative: General : Patient is well developed , no acute distress, oriented x3 Head : Normal cephalic, a-traumatic. Ears : Pinnae and external canal are normal. Hearing is normal. Eyes : PERRLA, Sclera and injection are normal. No conjunctival discharge. Nose : Mucous membranes are without erythema. Throat : buccal mucosa is normal, gums are without significant recession or hypertrophy. Lungs : Equal chest rise bilaterally, no use of accessory muscles, trachea is midline. Cor : Rate and rhythm are normal. Abdomen : Soft, ND, NT, no g/r/m Extremities : No edema, no cyanosis or clubbing, dorsalis pedis pulses are present bilaterally, non-tender to palpation of calves. Upper extremities are normal bilaterally. Back : non-tender to palpation, no CVA tenderness. Neuro : CN II - XII intact, Upper and lower extremities have equal and full strength A&P Assessment and plan (1) Obstruction of esophagus due to food impaction: Plan EGD with clearance of foreign body The risks and benefits of the procedure, including bleeding, infection, intestinal perforation requiring surgery, missed lesion were explained to the patient. The patient is understanding of the risks and wishes to proceed. Attestations Medical Necessity Statement*: Patient likely will go home after the procedure Coding Level of Care Code 22900 Diagnoses Obstruction of esophagus due to food impaction T18.128A; [id number].[id number]
[2024-10-15] MEDS: sodium chloride 0.9% 500 ML 30 ML IV (07:08)
--- NOTE | 2024-10-15 07:36 | ANES.PREANE2 ---
Pre-Anesthetic Assessment Height/Weight: Height 1.73 m Weight 127.006 kg Temp Pulse Resp BP Pulse Ox O2 Del Method 97.0 F L 86 17 183/93 97 Room Air 10/15/24 07:26 10/15/24 07:30 10/15/24 07:30 10/15/24 07:30 10/15/24 07:30 10/15/24 07:30 Preop Diagnosis: food bolus Operation Date: 10/15/24 07:20 Proposed Procedures p EGD(Not Applicable) - Pacheco Mares DO Familial anesthetic complications: none Was Beta Kai taken within 24 hours: N/A Was Clonidine taken within 24 hours: N/A Last intake: 2 days ago Social No alcohol and No tobacco Exam alert, oriented x 3, clear to auscultation bilaterally and regular rate & rhythm Airway Submandibular: within normal limits Cervical ROM: within normal limits Mallampati: Class III Dentition: full Comments: Comments: overbite History/ROS No significant history except as noted and No significant complaints Pulmonary None reported CV/HEM Hypertension None reported Hepatic None reported GI None reported Metabolic Morbid Ob[place] [facility] [place] None reported Neuropsych Anxiety Anesthetic Plan ASA status: 3 Anesthesia: General Risk of > 500 ml blood loss (7ml/kg in children): No Medications/Allergies Home Medications Medication Instructions Recorded Confirmed Last Taken Type pregabalin 100 mg capsule (Lyrica) 100 mg PO TID neuropathy #90 caps 06/02/22 12/21/22 Unknown Rx metoprolol tartrate 50 mg tablet 50 mg PO BID for bp #180 tabs 11/10/22 12/21/22 Unknown Rx escitalopram oxalate 10 mg tablet 10 mg PO DAILY #90 tabs 01/19/23 Unknown Rx losartan 100 mg tablet 100 mg PO DAILY #90 tabs 07/06/23 Unknown Rx Allergies Allergy/AdvReac Type Severity Reaction Status Date / Time No Known Allergies Allergy Verified 10/14/24 17:31 Current Medications Generic Name Dose Route Start Last Admin Trade Name Freq PRN Reason Stop Dose Admin Sodium Chloride 500 mls @ 30 mls/hr 10/15/24 07:03 10/15/24 07:08 Sodium Chloride 0.9% IV 10/15/24 23:42 30 mls/hr .[id number] [facility] Anesthesia Medical History Neuropathy Status post chemoradiation Rectal cancer Surgical History Port-A-Cath in place Removed 05/12/2022 History of reversal of ileostomy History of low anterior resection of rectum History of colonoscopy Social History Smoking and tobacco/nicotine status: current every day tobacco/nicotine user Data Anesthesia Cardiac Studies: No Data to Display
--- NOTE | 2024-10-15 08:03 | PC.PHAR ---
pt was not in his room, will verify meds with pharmacy and follow up with pt when he returns.
--- NOTE | 2024-10-15 08:22 | ANE.PACU2 ---
Inpatient post-anesthesia follow up: Airway intact: Yes Vital signs: Temperature 97.4 F Pulse Rate 69 Respiratory Rate 17 Blood Pressure 165/80 Pulse Oximetry 95 Oxygen Delivery Me thod Room Air Oxygen Flow Rate Fraction of Inspir ed Oxygen Hydration adequate: Yes Nausea and vomiting: No Pain level: 1 Mental status: Baseline
--- NOTE | 2024-10-15 08:40 | PC.NURSE ---
Patient ambulated to the nurses station and stated, Do you know about my discharge I have to get home? Explained to the patient that I did not have a discharge orders for him at this time. Patient states, I have to go though I need to get home and take care of my brother. I am going to just have to leave he is a blind diabetic and he needs to be feed this morning. Explained to patient that he should stay until discharge to make sure that nothing else is wrong and he could get further instructions from the doctor. I don't want you to go home and have some bad reaction happen or or something else that might cause him . Patient states, I am sorry but I really have to get home and take care of him. AMA paper provided to patient and signed. Dr. Mares notified of AMA. Patient is A&Ox3. Respirations even and non-labored on room air. Patient ambulated from the [facility] floor with a steady gait. Patient was drinking water with no obvious sign of distress noted.
--- NOTE | 2024-10-15 09:03 | PC.CHAP ---
Pastoral Care Encounter/Spiritual Assessment Type of Contact [] Declined tapper bit visit [] Patient/Family/Request visit [] Outpatient visit [] Follow-up visit [] Physician referral [] Code/Alert [] Routine visit [] Staff referral [] Actively dying [] Patient sleeping [] Family support [] [x] Out of room [] Palliative care [] [] Receiving care in room [] Pre-surgical visit [] Trauma [] Long length of stay [] ICU visit [] Other: Relational/Emotional Strength [] Patient feels connected with others/family/visitors/staff [] Distress [] Loneliness/isolation [] Abandonment Spirituality of Patient [] Person of Lucia [] Attends Zoroastrian of their Lucia [] Believes in Prayer [] Reads Bible or Religion materials [] There are Spiritual issues to be addressed Access Clinician Interventions [] Prayer [] Active listening [] Non-anxious presence [] Spiritual/emotional support [] Crisis/trauma care [] Spiritual counseling [] Bereavement support [] Provided bereavement packet [] Provided Bible/devotional materials [] Provided toy/stuffed animal, coloring book to patient or family member [] Provided Communion [] Anointing/[place] [] Salvation [] Completed spiritual assessment [] Other: Impact on Illness or Injury [] Angry [] Fearful [] Anxious [] Often cries [] Exhaustion [] Unable to work [] Unable to attend spiritism [] Unable to walk/stand [] Unable to read [] Unable to drive [] Unable to eat/drink [] Unable to sleep [] Unable to be with family [] Patient intubated [] Other: Summary Time spent with patient
== END 2024-10-15 08:35 | disposition left against medical advice (07) ==
LOC: ER 19:34 → MEDSURG 20:06
PROVIDERS: Admitting Provider Surgery; Emergency Provider Emergency Medicine; PCP Family Medicine; Visit Provider Surgery
PROC: 0DJ08ZZ Inspection of Upper Intestinal Tract, Via Natural or Artificial Opening Endoscopic (ICD-10-PCS; principal; 2024-10-15 07:20)
DX: T18.128A Food in esophagus causing other injury, initial encounter (principal); W44.F3XA Food entering into or through a natural orifice, initial encounter; Z92.21 Personal history of antineoplastic chemotherapy; F17.200 Nicotine dependence, unspecified, uncomplicated
CPT/HCPCS: 36416; 43247; 82962; 96374; 96375; 99285; G0378; J0330; J1610; J2060; J2704; J3010; J7040

== ENCOUNTER → 2024-11-18 07:49 | Outpatient (BNVA) | payer MEDICARE, SELFPAY | PROVIDERS: PCP Family Medicine; Visit Provider Surgery | DX: T18.128A Food in esophagus causing other injury, initial encounter (principal); W44.F3XA Food entering into or through a natural orifice, initial encounter; R13.10 Dysphagia, unspecified; Z12.11 Encounter for screening for malignant neoplasm of colon; Z85.048 Personal history of other malignant neoplasm of rectum, rectosigmoid junction, and anus; X58.XXXA Exposure to other specified factors, initial encounter | CPT/HCPCS: 99204 ==

== ENCOUNTER 2024-11-27 09:48 | Day surgery (SDC) | payer MEDICARE, SELFPAY ==
[2024-11-27 10:00] VITALS: BP 169/112; PULSE 74; RESP 18; TEMP 36.3; O2SAT 95; BMI 43.3
--- NOTE | 2024-11-27 10:10 | P.ANESASSM_ITS ---
Pre-Anesthetic Assessment Height/Weight: Height 1.73 m Weight 129.274 kg Temp Pulse Resp BP Pulse Ox O2 Del Method 97.4 F L 74 18 169/112 95 Room Air 11/27/24 10:00 11/27/24 10:00 11/27/24 10:00 11/27/24 10:00 11/27/24 10:00 11/27/24 10:00 Preop Diagnosis: difficulty swallowing Operation Date: 11/27/24 10:45 Proposed Procedures p EGD Dilation W/ Balloon 60725, 29840, G0105, T18.128A, R13.10, Z12.11, Z85.048(Not Applicable) - DO nancy Hernandez Colonoscopy(Not Applicable) - Pacheco Mares DO Familial anesthetic complications: none Was Beta Kai taken within 24 hours: N/A Was Clonidine taken within 24 hours: N/A Last intake: Intake Last Liquid Date 11/26/24 Last Liquid Time 19:00 Last Solid Date 11/25/24 Last Solid Time 21:00 Social Alcohol and No tobacco 8 beers per night Exam alert, oriented x 3, clear to auscultation bilaterally and regular rate & rhythm Airway Submandibular: within normal limits Cervical ROM: within normal limits Mallampati: Class II Dentition: full History/ROS No significant history except as noted and No significant complaints Pulmonary None reported CV/HEM Hypertension None reported Hepatic None reported GI Gastroesophageal Reflux Disease Metabolic Morbid Obesity Musc/skel Weakness Neuropsych None reported Anesthetic Plan ASA status: 3 Anesthesia: MAC Other: colorectal cancer Risk of > 500 ml blood loss (7ml/kg in children): No Medications/Allergies Home Medications ?Medication ?Instructions ?Recorded ?Confirmed ?Last Taken ?Type metoprolol tartrate 50 mg tablet 50 mg PO BID for bp # 180 tabs 11/10/22 11/25/24 11/25/24 Rx escitalopram oxalate 10 mg tablet 10 mg PO DAILY #90 t abs 01/19/23 11/25/24 11/25/24 Rx losartan 100 mg tablet 100 mg PO DAILY #90 tabs 11/25/24 11/25/24 Rx pantoprazole 40 mg tablet,delayed 40 mg PO BID 6 weeks #84 tabs 11/18/24 11/25/24 11/25/24 Rx release (Protonix) Allergies Allergy/AdvReac Type Severity Reaction Status Date / Time No Known Allergies Allergy Verified 10/14/24 17:31 [facility] Anesthesia Medical History Neuropathy Status post chemoradiation Rectal cancer Surgical History Port-A-Cath in place Removed 05/12/2022 History of reversal of ileostomy History of low anterior resection of rectum History of colonoscopy Social History Smoking and tobacco/nicotine status: current every day tobacco/nicotine user smokeless tobacco Smokeless tobacco user: chewing tobacco Alcohol intake: current Alcohol intake frequency: 3 or more drinks per day Alcohol type: beer Substance/Drug Use: never Data Anesthesia Cardiac Studies: No Data to Display
--- NOTE | 2024-11-27 10:13 | P.HPUD_ITS ---
Surgery/Procedure H&P Update DATE OF PROCEDURE: November 27, 2024 DATE H&P PERFORMED: 11/18/24 H&P UPDATE INFORMATION: I have reviewed H&P completed within last 30 days, I have examined patient prior to procedure and No changes to prior documentation PLANNED PROCEDURE: Operation Date: 11/27/24 10:45 Proposed Procedures p EGD Dilation W/ Balloon 02618, 87911, G0105, T18.128A, R13.10, Z12.11, Z85.048 (Not Applicable) - DO nancy Hernandez Colonoscopy(Not Applicable) - Pacheco Mares DO
[2024-11-27 10:40] VITALS: BP 180/86; PULSE 99; RESP 18; TEMP 36.2; O2SAT 94
[2024-11-27 10:52] VITALS: BP 156/73; PULSE 86; RESP 18; O2SAT 95
--- NOTE | 2024-11-27 11:34 | ANE.PACU2 ---
Inpatient post-anesthesia follow up: Airway intact: Yes Vital signs: Temperature 97.2 F Pulse Rate 86 Respiratory Rate 18 Blood Pressure 156/73 Pulse Oximetry 95 Oxygen Delivery Me thod Room Air Oxygen Flow Rate Fraction of Inspir ed Oxygen Hydration adequate: Yes Nausea and vomiting: No Pain level: 1 Mental status: Baseline
== END 2024-11-27 11:04 | disposition home or self-care (01) ==
PROVIDERS: PCP Family Medicine; Visit Provider Surgery
DX: K22.2 Esophageal obstruction (principal); K20.90 Esophagitis, unspecified without bleeding; K29.80 Duodenitis without bleeding; K21.9 Gastro-esophageal reflux disease without esophagitis; E66.01 Morbid (severe) obesity due to excess calories; I10 Essential (primary) hypertension; Z79.899 Other long term (current) drug therapy; F17.220 Nicotine dependence, chewing tobacco, uncomplicated; Z85.048 Personal history of other malignant neoplasm of rectum, rectosigmoid junction, and anus; Z90.49 Acquired absence of other specified parts of digestive tract
CPT/HCPCS: 43239; 43249; 88305; J2704

== ENCOUNTER → 2024-12-09 10:01 | Outpatient (BNVA) | payer MEDICARE, SELFPAY | PROVIDERS: PCP Family Medicine; Visit Provider Surgery | DX: Z09 Encounter for follow-up examination after completed treatment for conditions other than malignant neoplasm (principal); R13.10 Dysphagia, unspecified; Z12.11 Encounter for screening for malignant neoplasm of colon | CPT/HCPCS: 99214 ==